=== PATIENT | male | born 1940 | race Caucasian/White ===

== ENCOUNTER 2017-01-17 12:58 | Inpatient (IN) | payer MEDICARE ==
[~2017-01-17] VITALS: Ht 177.8 cm; Wt 97.7 kg
[2017-01-17] VITALS (7 sets, daily range): BP systolic 146–170; BP diastolic 81–94; PULSE 72–85; RESP 13–24; O2SAT 96–97
--- NOTE | 2017-01-17 12:58 | ED.REPORT ---
HPI-General Illness Date of Service Jan 17, 2017 ED Provider: Arley Mason DO Patient is a 76 year old male with a hx of Afib, HTN, hypercholesterolemia, CVA , and coronary atherosclerosis on Coumadin who presents to the ED via EMS complaining of R leg weakness that has been intermittent for that last month but is worse and constant this morning since 0930.He denies chest pain, SOB, palpitations, numbness, tingling, vision changes, or any other symptoms. He had a sinus infection recently and was on doxycycline. He does not know if his afib is chronic but reports that he has a hx of afib. Patient is a difficult historian. Nursing Notes Stated Complaint: WEAKNESS Nursing Notes Reviewed: Yes Allergies: Coded Allergies: amoxicillin (Verified Allergy, Unknown, 01/17/17) cephalexin (Verified Allergy, Unknown, 01/17/17) epinephrine (Verified Allergy, Unknown, 01/17/17) irbesartan (Verified Allergy, Unknown, 01/17/17) morphine (Verified Allergy, Unknown, 01/17/17) prednisone (Verified Allergy, Unknown, 01/17/17) Uncoded Allergies: DAIRY (Allergy, Unknown, 01/17/17) congestion EPHENEDRINE (Allergy, Unknown, 01/17/17) NAPROXINE (Allergy, Unknown, 01/17/17) Scheduled Hydrochlorothiazide (Hydrochlorothiazide) 25 Mg Tablet 25 MG PO DAILY Lisinopril (Lisinopril) 20 Mg Tablet 20 MG PO DAILY Ubiquinol (Ubiquinol) 100 Mg Capsule 300 MG PO DAILY Warfarin Sodium (Coumadin) 6 Mg Tablet 6 MG PO DAILY General Time Seen by MD: 12:56 Chief Complaint Weakness Hx Obtained From: Patient Arrived By: Ambulance Sudden in Onset?: No Past Medical History Past Medical History Coronary atherosclerosis of 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 Physical Exam Vital Signs Vital Signs Date Time Temp Pulse Resp B/P Pulse Ox O2 Delivery O2 Flow Rate FiO2 01/17/17 13:39 81 13 150/94 96 Room Air 01/17/17 12:59 37.0 85 24 148/81 97 Room Air Initial VS: Reviewed Head / Eyes: Atraumatic, Normocephalic Respiratory: Breath sounds normal, Clear to auscultation, No respiratory distress Abdomen / GI: Soft, Non-tender Skin: Warm, Dry Psychiatric: Mood/affect normal, Behavior normal, Normal thought content General/Constitutional: Awake, Alert, No acute distress Neck: Supple, Full range of motion, No JVD Cardiovascular: Heart rate NL Heart Rate / Rhythm: Positive: Irregular rhythm Lower Ext Edema: Positive: Bilateral 1+ Rate controlled Neurologic: Oriented X3, Speech NL NIH stroke scale score 1 Interpretation & Diagnostics Lab Results Interpretation Result Diagram: 01/17/17 1325 01/17/17 1325 Test 01/17/17 13:25 White Blood Count 15.0th/mm3 (3.8-10.1) Red Blood Count 5.58mil/mm3 (4.40-5.80) Hemoglobin 17.1g/dL (13.8-17.2) Hematocrit 49.1% (41.0-50.0) Mean Corpuscular Volume 88.0fL (81-100) Mean Corpuscular Hemoglobin 30.6pg (27.0-35.0) Mean Corpuscular Hemoglobin Concent 34.8% (32.0-37.0) Red Cell Distribution Width 13.9% (12.3-15.4) Platelet Count 178bil/L (150-400) Neutrophils (%) (Auto) 76.6% (40-74) Lymphocytes (%) (Auto) 11.8% (14-46) Monocytes (%) (Auto) 10.6% (4-12) Eosinophils (%) (Auto) 0.4% (0-5) Basophils (%) (Auto) 0.3% (0-3) Prothrombin Time 41.2sec (8.1-12.5) Prothromb Time International Ratio 3.75ratio Activated Partial Thromboplast Time 46.9sec (22.8-33.0) Sodium Level 136mEq/L (134-144) Potassium Level 3.8mEq/L (3.5-5.2) Chloride Level 99mEq/L (97-108) Carbon Dioxide Level 23mmol/L (18-29) Blood Urea Nitrogen 21mg/dL (8-27) Creatinine 0.89mg/dL (0.76-1.27) Estimat Glomerular Filtration Rate 89mL/min (>59) Glucose Level 100mg/dL (60-99) Calcium Level 9.2mg/dL (8.5-10.1) Magnesium Level 1.9mg/dL (1.6-2.6) Total Bilirubin 1.0mg/dL (0.0-1.2) Aspartate Amino Transf (AST/SGOT) 22U/L (0-50) Alanine Aminotransferase (ALT/SGPT) 15U/L (0-44) Alkaline Phosphatase 76U/L (25-160) Troponin T < 0.010ug/L (0.0-0.011) Total Protein 7.2g/dL (6.4-8.4) Albumin 3.7g/dL (3.4-5.0) Hold Duke Top Tube Received (Received) ECG Interpretation ECG Interpretation: aflutter with rate 82 variable block pvc Time: 13:03 Interpreted by: ED physician X-Ray Chest Interpretation Chest Xray Interpretation: IMPRESSION: No acute cardiopulmonary abnormality. Dictated by: Jose Taylor M.D. on 01/17/2017 at 13:18 Approved by: Jose Taylor M.D. on 01/17/2017 at 13:18 View: Portable, 1 view Interpretation / Wet Read by: Interpret - Radiologist CT Head Interpretation IMPRESSION: 1. No acute intracranial abnormality. 2. Chronic bilateral cerebral infarcts. 3. Right parafalcine meningioma. 4. Volume loss and small vessel ischemic disease. Dictated by: Jasen Lacey M.D. on 01/17/2017 at 13:30 Approved by: Jasen Lacey M.D. on 01/17/2017 at 13:32 Study: Head CT no contrast Interpretation / Wet Read by: Interpret - Radiologist Re-Eval/Medical Decision Med Decision/Clinical Course Concern for stroke with recurrent TIAs leading up to it. INR is supratherapeutic, no aspirin given. Not a TPA candidate for multiple reasons. Time of Eval: 13:38 Re-Evaluation/Progress Note: Rechecked patient. Discussed imaging results and plan for admission. Patient understands and agrees with plan. All questions addressed at this time. Consultation #1: Referral / Consult Name: Alejandra Terrazas DO Consulted With: Hospitalist Call Returned at: 13:55 Clerical Secretary: Will see patient, Agrees with eval, Agrees with plan, Accepts admit Note: Discussed pt's case. Requests consult with [facility]. Accepts patient. Consultation #2: Consulted With: Neurology Call Returned at: 14:04 Note: [facility] Pt has known prior strokes and may be having small acute stroke. No particular concerns for admitting. Follow standard stroke workup. Counseled Regarding: Diagnosis, Lab results, Need for admission Discharge & Departure Primary Impression: CVA (cerebral vascular accident) CVA mechanism: unspecified Qualified Code: I63.9 - Cerebral infarction, unspecified Disposition: ADMITTED TO HOSPITAL Discharge Condition All VS Reviewed: Yes Condition: Stable Referrals: Arnaud Hampton MD (PCP) Scribe Attestation Portions of this note were transcribed by Lily Mcconnell. I, Dr. Mason personally performed the history, physical exam and medical decision-making; I reviewed and confirmed the accuracy of the information in the transcribed note. Signed by: Lily Mcconnell 01/17/17, 6823 copies to: Arnaud Hampton MD Risk Factors TPA Administration/Criteria Stroke Thrombolytic Therapy : TPA Considered: Yes Neurologist Contacted: No TPA Administered Intravenously: No, exclusion criteria Addl Ex Criteria 3-4.5 Hr: On oral anticoagulant NIH Stroke Scale Level of Consciousness: Alert and responsive (0) Ask Month & Age: Both questions right (0) Open/Close Eyes/Hand Railroad Car Loader: Performs both tasks (0) Horizontal EO Movements: None (0) Visual [place]: No visual loss (0) (Baseline peripheral vision deficits ) Facial Palsy: Normal symmetry (0) Right Arm Motor Drift (10s): No drift 10 sec (0) Left Arm Motor Drift (10s): No drift 10 sec (0) Right Leg Motor Drift (5s): Drift, not touch bed (1) (Weakness, did not hit bed ) Left Leg Motor Drift (5s): No drift 5 sec (0) Limb Ataxia FNF/Heel-Anthony: No ataxia (0) Sensation (Arms/Legs/Face): No sensory loss (0) Language Aphasia: No aphasia, normal (0) Dysarthria: No dysarthria, normal (0) Extinction/Inattention: No exctinct/inattent (0) NIHSS Score: 1 Time NIHSS Performed: 13:10 Date NIHSS Performed: Jan 17, 2017 Arley Mason DO Jan 17, 2017 12:58 LILY MCCONNELL Jan 17, 2017 13:09
--- NOTE | 2017-01-17 13:20 | DRSVH ---
PROCEDURE: X-RAY CHEST ONE VIEW, PORTABLE ([id number]) INDICATIONS: weakness TECHNIQUE: One view of the chest was acquired. COMPARISON: 06/09/2013 FINDINGS: Surgical changes and devices: Median sternotomy and CABG Lungs and pleura: No pleural effusions or pneumothorax. Lungs are clear. Mediastinum: Mediastinal contours appear normal. Heart size is normal. Tortuous aorta. Bones and chest wall: No suspicious bony lesions. Overlying soft tissues appear unremarkable. IMPRESSION: No acute cardiopulmonary abnormality. Dictated by: Jose Taylor M.D. on 01/17/2017 at 13:18 Approved by: Jose Taylor M.D. on 01/17/2017 at 13:18
--- NOTE | 2017-01-17 13:35 | DRSVH ---
PROCEDURE: CT BRAIN WITHOUT CONTRAST ([id number]) INDICATIONS: afib, right leg weakness TECHNIQUE: Noncontrast 4.5 mm thick angled axial sections acquired from the foramen magnum to the vertex, with c oronal reformats. COMPARISON: None. FINDINGS: Image quality: Excellent. CSF spaces: Basal cisterns are patent. No extra-axial fluid collections. The ventricles are symmet konstantin in size and shape. Brain: No intracranial bleeds. There is an extra-axial right superior parafalcine calcific focus mark suring 13 mm anteroposterior, adjacent to the right posterior medial frontal lobe. Small chronic infa rct within the right anterior frontal lobe is present. Encephalomalacia within the left medial pariet al lobe, as well as the left posterior and lateral occipital lobe is present, consistent with sequela e of remote infarct. There is cerebral volume loss for age, with resultant ventricular and sulcal pro minence. There are periventricular and deep white matter chronic small vessel ischemic changes. The re is intracranial internal carotid artery atherosclerosis. Skull and face: Calvarium and visualized facial bones appear intact, without suspicious lesions. Sinuses: Visualized sinuses and mastoids are clear. IMPRESSION: 1. No acute intracranial abnormality. 2. Chronic bilateral cerebral infarcts. 3. Right parafalcine meningioma. 4. Volume loss and small vessel ischemic disease. Dictated by: Jasen Lacey M.D. on 01/17/2017 at 13:30 Approved by: Jasen Lacey M.D. on 01/17/2017 at 13:32
[2017-01-17 13:45] LABS: BASOPHILS % (AUTO) 0.3 % (0-3); EOSINOPHILS % (AUTO) 0.4 % (0-5); MONOCYTES % (AUTO) 10.6 % (4-12); Mean Corpuscular Hemoglobin 30.6 pg (27.0-35.0); NEUTROPHILS % (AUTO) 76.6 % (40-74); Platelet Count 178 bil/L (150-400)
[2017-01-17 13:55] LABS: INR 3.75 ratio
[2017-01-17] MEDS ORDERED: LISI-567 PO (14:03)
[2017-01-17] MEDS ORDERED: WARF6TAB PO (14:03)
[2017-01-17] MEDS ORDERED: UBIQ100C PO (14:03)
[2017-01-17] MEDS ORDERED: HYDR25TA4 PO (14:03)
[2017-01-17 14:10] LABS: Magnesium 1.9 mg/dL (1.6-2.6)
[2017-01-17 14:17] LABS: TROPONIN T < 0.010 ug/L (0.0-0.011)
--- NOTE | 2017-01-17 15:33 | NUR ---
Evaluation completed. Please go to "Notes" then click on "Assessments and Notes" (bottom left corner of screen). Then select appropriate discipline tab on top of screen.
[2017-01-17] MEDS ORDERED: Polyethylene Glycol (PEG) 17 Gm Powder PO PRN (17:25)
[2017-01-17] MEDS ORDERED: Ondansetron 2 mg/mL 2 mL Inj IVPUSH PRN (17:25)
[2017-01-17] MEDS ORDERED: Alum-Mag Hydrox-Simeth 30 mL Suspension PO PRN (17:25)
[2017-01-17] MEDS ORDERED: Labetalol 5 mg/mL 4 mL Inj IVPUSH PRN (17:25)
--- NOTE | 2017-01-17 18:03 | NUR ---
[facility] Admission assessments and med rec completed in ER. Oriented to room and call light. Provider notified of arrival and assessed. A&O and SL.
[2017-01-17] MEDS ORDERED: LORazepam 0.5 mg Tablet PO ONE (18:15)
[2017-01-17 18:39] LABS: APPEARANCE,URINE CLEAR (CLEAR,HAZY); COLOR,URINE YELLOW (YELLOW); UROBILINOGEN,URINE NORMAL (NORMAL)
[2017-01-17 18:40] LABS: OCCULT BLOOD,URINE TRACE (NEGATIVE)
--- NOTE | 2017-01-17 19:42 | NUR ---
Patient off unit Patient to MRI at 1924. kennel technician notified. Left via wheelchair, alert and oriented.
--- NOTE | 2017-01-17 21:05 | DRSVH ---
PROCEDURE: MRI STROKE PROTOCOL ([id number]) Pre- and post-contrast brain MRI, non-contrast brain MR angiogram, pre- and postcontrast neck MR mirlande ogram INDICATIONS: stroke work up TECHNIQUE: Brain: Noncontrast axial T1 spin echo, axial T2 fast spin echo, sagittal and axial FLAIR, coronal T2 fast spin echo, axial gradient echo, axial diffusion and ADC through the brain. After the administr ation of contrast, axial 3D VIBE of the cranial vasculature and brain. Brain MRA: Non-contrast 3-D time of flight MR angiogram, with multiple fhpvxjz-yzqpcpipb-lyxlhoootx (MIP) reformats performed. Neck MRA: Axial and sagittal TruFISP through the neck. Coronal dynamic MR angiogram during administ ration of contrast in the arterial and venous phases, with 3-dimenstional wgujmtw-vqdmtatnp-imtiuaqfy n (MIP) reformats constructed from subtraction images. COMPARISON: [facility], CT, CT BRAIN WO CON, 01/17/2017, 13:21. FINDINGS: Image quality: Excellent. BRAIN: CSF spaces: Ventricles are normal in size and shape. Basal cisterns are patent. No extra-axial flu id collections. Brain: No intracranial bleeds or mass effects. [place]oto-white matter interface is normal. Diffusion we ighted images show multiple subcentimeter foci of acute ischemia in the left frontal periventricular white matter. There is chronic encephalomalacia involving the left temporal occipital lobe, and right frontal lobe. Scattered diffuse white matter signal changes presumably chronic microvascular ischemi c disease. Brainstem appears normal. Normal intravascular flow voids are present. No abnormal intr acranial enhancement. Skull and face: Calvarial marrow signal is normal. Orbits appear normal. Sinuses: Bilateral maxillary sinus disease. Mild right mastoid air cell fluid, technically nonspecifi c and age-indeterminate. BRAIN MR ANGIOGRAM: Anterior circulation: Intracranial internal carotid arteries are normal in size and enhancement. Rig ht anterior cerebral artery appears patent.. The left A2 segment is not well seen. Given the prominen t size, there may be a dominant right anterior cerebral artery, The flow within the middle cerebral a rteries is normal and symmetric. The anterior communicating artery is seen. Posterior circulation: The visualized portions of the vertebral arteries demonstrate normal caliber, and join to form a normal appearing basilar artery. The flow within the posterior cerebral arteries is normal and symmetric. No stenoses, occlusions, or aneurysms. NECK MR ANGIOGRAM: Carotids: Great vessels demonstrate a conventional anatomy as they arise from the aortic arch. The origins of the common carotid arteries appear patent. The calibers and courses of both common caroti d arteries are normal. The bifurcation regions appear normal bilaterally. The internal carotid nash brenda demonstrate normal course and caliber. Posterior circulation: The origins of the vertebral arteries appear patent. More superior portions of both vertebral arteries demonstrate normal course and caliber, and join to form a normal appearing basilar artery. Miscellaneous: Subclavian arteries appear patent. Pre-contrast images through the neck show no soft tissue abnormalities. IMPRESSION: BRAIN MRI: Multiple, subcentimeter foci of acute ischemia involving the left frontal periventricular white matter Right parafalcine meningioma Bilateral areas of chronic encephalomalacia as above. BRAIN MR ANGIOGRAM: The left A2 segment is not well-seen, possibly occluded although congenital atres ia in the setting of dominant right anterior cerebral artery is in the differential. Please correlate clinically. NECK MR ANGIOGRAM: No ICA stenosis. The estimate of stenosis included in the report of the imaging study was calculated using the NASCET method Dictated by: Artie Harvey M.D. on 01/17/2017 at 20:54 Approved by: Artie Harvey M.D. on 01/17/2017 at 21:03
--- NOTE | 2017-01-17 22:14 | NUR ---
Bladder scan Patient used urinal around 2144, only minimal output. Bladder scan showed 348 ml. About ten minutes later, patient used urinal, voided 400 ml. Patient has denied urinary discomfort.
--- NOTE | 2017-01-17 23:26 | PCM.HPMED ---
Subjective Date of Service Jan 17, 2017 Primary Provider: Admitting Physician: Yadira Archer DO Primary Care Physician: Arnaud Hampton MD Attending Physician: Yadira Archer DO Admit Status: From the Emergency Department Chief Complaint: R leg weakness History of Present Illness: This is a 76-year-old male with a past medical history of CAD status post double bypass in 2005, TIA, CVA in 2012, hypertension, atrial fibrillation onset 2005, hyperlipidemia, heart murmur aortic valve replacement (currently has a bovine valve) is presenting with right leg weakness that has worsened since 9:30 AM. Patient's says that he could barely stand on it and it is not like him. Patient had a previous stroke during which he had lost some peripheral vision but otherwise there are no residual effects. Recently he was treated with a sinus infection for doxycycline. He finished the course but says that he is not feeling much better. Patient has a little bit headache over his left temporal area has intermittent leg weakness but has pain in the right leg and knee. He denies numbness, tingling, denies double vision, he has no palpitations or dyspnea chest pain no urine symptoms and no GI symptoms. Pt has taken AM meds. He says he quit taking statin as his lipid panel was much improved. Patient denies recent fevers and chills recent weight loss and weight gain In the ER and itches score was 1, head CT showed previous bilateral infarcts volume loss small vessel ischemic changes, right parafalcine meningioma. [facility] was contacted and they basically recommended to treat for stroke because of his elevated INR at 3.75 he is outside the window for TPA and he was not given TPA. Lab work shows a scaly elevated white count at 15 otherwise fairly unremarkable. Review of Systems: Complete review of systems performed, pertinent positives and negatives per history of present illness, all other systems reviewed and are negative. Allergies Coded Allergies: amoxicillin (Verified Allergy, Unknown, 01/17/17) cephalexin (Verified Allergy, Unknown, 01/17/17) epinephrine (Verified Allergy, Unknown, 01/17/17) irbesartan (Verified Allergy, Unknown, 01/17/17) morphine (Verified Allergy, Unknown, 01/17/17) prednisone (Verified Allergy, Unknown, 01/17/17) Uncoded Allergies: DAIRY (Allergy, Unknown, 01/17/17) congestion EPHENEDRINE (Allergy, Unknown, 01/17/17) NAPROXINE (Allergy, Unknown, 01/17/17) Home Medications Medications include hydrochlorothiazide, lisinopril, Ubiquinone, warfarin PMH Past medical history remarkable for CAD status post double bypass in October 2005 , aortic valve replacement, bovine valve, TIA, CVA, hypertension, atrial fibrillation 2005, height hyperlipidemia, stroke that occurred in 2012, heart murmur Surgical History He has had double bypass surgery, aortic valve replacement with a bovine valve, H Achilles Tendon replacement, right wrist surgery Family History That from congestive heart failure next mom from old age Social History 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 Hx Alcohol Use: No Hx Substance Use: No Hx Tobacco Use: Yes (half pack per day) Smoking Status: Current Every Day Smoker, Unknown if Ever Smoker Living Arrangement: with Family Exam Vital Signs Vital Sign - Last Date Time Temp Pulse Resp B/P Pulse Ox O2 Delivery O2 Flow Rate FiO2 01/17/17 14:53 77 14 170/82 97 Room Air 01/17/17 12:59 37.0 Exam Gen.: No acute distress HEENT: Normocephalic, atraumatic Heart: Mild systolic murmur Lungs: No wheezing diminished in the left lower side Abdomen: Nontender nondistended mild tenderness in the LLQ Extremities: No swelling Musculoskeletal: Very mildly reduced strength in right upper leg however to markedly noticeable decreased strength in the lower right leg and foot. Left ankle is more swollen than right Neurological exam CN II-12 are grossly unremarkable with the exception of peripheral vision loss, has negative Romberg's, negative udfrqk-mq-kwen with the exception of loss of peripheral vision, negative alternative hands Eyes: [place] conjunctivae. No ptosis, PERRL Neck: No masses, trachea midline, no thyromegal Skin: Warm and dry. No rash, lesions or ulcers Psych: A&O X3, with appropriate affect Lab and Diagnostics Result Diagram: 01/17/17 1325 01/17/17 1325 Assessment & Plan This is a 76-year-old male with past medical history of heart disease status status post double bypass, previous TIA, previous CVA, A. fib and now he is presenting with the right leg weakness that is more intense than his baseline he is being worked up for stroke per [facility]. Assessment #1 strokelike symptoms, poa -- Patient has kept smoking after his prior stroke, he discontinued statin on his own, was not on asa. -- Telemonitoring , permissive hypertension during the first 24 hours -- Labetalol as needed for hypertension control -- atorvastatin is initiated -- Lipid panel and A1c are ordered: A1C is still pending, lipid panel shows CHOL =204, SPW=197 HDL=53 SG=040, not quite optimal for his risk factors -- Aspirin, continue Coumadin -- Pharmacy consult for Coumadin -- MR stroke protocol is ordered, ativan for anxiety prior to procedure -- US Echo is ordered -- PT/OT/ST are ordered Assessment #2 hypertension, chronic active -- Management as above hold hydrochlorothiazide and lisinopril for 24 hours Assessment #3 heart disease, chronic active -- Aspirin and statin, -- lisinopril is held Assessment #4 bronchitis, poa active -- Chest x-ray is ordered -- Consider Augmentin if there is concern Assessment #5 Tobacco abuse, active chronic -- Pt declines nicotine patch, states he will quit now for sure. Assessment #6 Chronic atrial fibrillation, active -- Patient is in afib on tele, was supratherapeutic on arrival -- Pharmacy consult is placed Code Status: Patient's is extremely anxious, often answering questions before patient could. I felt that it would not help to bring up code status considering the situation in the room. Plan to discuss when they are able to reasonably participate in those discussions. All pertinent records are reviewed, family and patient were communicated the plan of care. Pain Evaluation: Other (he has no pain) Time spent 40 min Yadira Archer DO Jan 17, 2017 16:36
[2017-01-18] VITALS (8 sets, daily range): BP systolic 131–177; BP diastolic 72–84; PULSE 24–95; RESP 20–28; O2SAT 94–97
--- NOTE | 2017-01-18 03:04 | NUR ---
NOC shift note Patient has remained alert and oriented through this night, a little forgetful at times. Has denied pain. Encouraged PO fluids with each time of entering room, patient agreeable. Vital signs have been stable. Patient voiding well. Neuro assessments unchanged. Bed alarm on for safety, call light within reach, intentional rounding.
[2017-01-18 06:22] LABS: Mean Corpuscular Hemoglobin 30.1 pg (27.0-35.0); Mean Corpuscular Volume 89.1 fL (81-100)
--- NOTE | 2017-01-18 06:51 | NUR ---
0640-Responded to Code Blue. Pt. awake and responding upon arrival. Breathing spontaneously. Respiratory intervention not needed.
--- NOTE | 2017-01-18 06:59 | PCM.PNMED ---
Subjective Date of Service Jan 18, 2017 Subjective This morning at 6:38 AM a CODE BLUE was called. Patient had been coughing and then returned slightly cyanotic and slumps over to one side and then prior to me getting there a believe had been briefly and then had spontaneous respirations and returned to his baseline respiratory and mental status. Of note patient was admitted with CVA. Exam Vital Signs Vital Sign - Last Date Time Temp Pulse Resp B/P Pulse Ox O2 Delivery O2 Flow Rate FiO2 01/18/17 06:42 177/82 01/18/17 04:48 36.4 74 20 96 Room Air Intake and Output 01/17/17 01/17/17 01/18/17 Cumulative From/Thru 15:00 23:00 07:00 01/17/17 12:59 - 01/18/17 06:15 Intake Total 120 ml 300 ml 420 ml Output Total 700 ml 1150 ml 1850 ml Balance -580 ml -850 ml -1430 ml Intake Oral 120 ml 300 ml 420 ml Output Urine Total 700 ml 1150 ml 1850 ml Exam Constitutional: Elderly male in no acute distress Head: Normocephalic atraumatic Eyes: PERRLA DC, EOMI Chest: Reveals some scattered rhonchi Cor: Irregular regular rate and rhythm S1-S2 controlled rate of 70-80 Extremities: Trace bilateral pedal edema Lab and Diagnostics Result Diagram: 01/18/17 0543 01/17/17 1325 Assessment & Plan This is a 76-year-old male with past medical history of heart disease status status post double bypass, previous TIA, previous CVA, A. fib and now he is presenting with the right leg weakness that is more intense than his baseline he is being worked up for stroke per [facility]. Assessment #1 strokelike symptoms, poa -- Patient has kept smoking after his prior stroke, he discontinued statin on his own, was not on asa. -- Telemonitoring , permissive hypertension during the first 24 hours -- Labetalol as needed for hypertension control -- atorvastatin is initiated -- Lipid panel and A1c are ordered: A1C is still pending, lipid panel shows CHOL =204, AII=747 HDL=53 CA=674, not quite optimal for his risk factors -- Aspirin, continue Coumadin -- Pharmacy consult for Coumadin -- MR stroke protocol is ordered, ativan for anxiety prior to procedure -- US Echo is ordered -- PT/OT/ST are ordered Assessment #2 hypertension, chronic active -- Management as above hold hydrochlorothiazide and lisinopril for 24 hours Assessment #3 heart disease, chronic active -- Aspirin and statin, -- lisinopril is held Assessment #4 bronchitis, poa active -- Chest x-ray is ordered -- Consider Augmentin if there is concern Assessment #5 Tobacco abuse, active chronic -- Pt declines nicotine patch, states he will quit now for sure. Assessment #6 Chronic atrial fibrillation, active -- Patient is in afib on tele, was supratherapeutic on arrival -- Pharmacy consult is placed Code Status: Patient's is extremely anxious, often answering questions before patient could. I felt that it would not help to bring up code status considering the situation in the room. Plan to discuss when they are able to reasonably participate in those discussions. All pertinent records are reviewed, family and patient were communicated the plan of care. Addendum at 6:58 AM: #Acute hypoxic episode with spontaneous recovery May have been related to aspiration versus mucus plugging We will make patient nothing by mouth until swallow eval by speech therapy Check stat chest x-ray, 12-lead EKG, serial troponins Currently patient's vital signs are stable Time spent 30 minutes Frances Henley MD Jan 18, 2017 06:59
--- NOTE | 2017-01-18 07:20 | NUR ---
Code Blue Called Patient began coughing at about 0630. Assessed patient, audible wheezes heard. Attempted to assist patient to an upright position and to sit at the edge of the bed. Patient's right side was stiff, unable to help with repositioning. Patient then suddenly slumped to the right side and began shaking. Skin color turned darker red. Respirations increased. Patient unable to speak clearly, was stuttering, and unable to make eye contact. Code blue button pushed for sudden change in mentation at about 0635. Staff, responded. Vital signs taken, within his normal range except for an elevated blood pressure. Episode lasted about five minutes total, shaking lasted about one minute. Patient did not lose consciousness. Patient was assisted back into a comfortable position. Appears to be back at baseline, and it is unclear whether or not patient remembers episode. Bed alarm on, report given to receiving RN. Addendum: 01/18/17 at 0737 by BERT HADDAD RN , Yesi, was called at home and updated on patient's condition.
--- NOTE | 2017-01-18 09:11 | DRSVH ---
PROCEDURE: X-RAY CHEST, TWO VIEWS ([id number]) INDICATIONS: bronchitis, cough, elev WBC TECHNIQUE: 2 views of the chest were acquired. COMPARISON: [facility], CR, XR CHEST 1VW (PORTABLE), 01/17/2017, 13:00. FINDINGS: Surgical changes and devices: Sternal wires and valve replacement are noted. Lungs and pleura: No pleural effusions or pneumothorax. Lungs are clear. Mediastinum: Mediastinal contours are normal. Heart size is normal. Bones and chest wall: No suspicious bony abnormalities. Soft tissues appear unremarkable. IMPRESSION: No acute pulmonary process. Dictated by: Destini Keene M.D. on 01/18/2017 at 8:47 Approved by: Destini Keene M.D. on 01/18/2017 at 9:09
[2017-01-18] MEDS ORDERED: Albuterol-Ipratropium 3 mL Inhalation Solution NEB PRN (09:25)
[2017-01-18 10:38] LABS: INR 1.79 ratio
--- NOTE | 2017-01-18 11:02 | PCM.PHAPRO ---
Progress R leg weakness Date Jan 18-Jan INR 3.75 1.79 INR change -1.96 Warf Dose HOLD 6 Angel Christianson Pharm.D Jan 18, 2017 11:02
--- NOTE | 2017-01-18 11:03 | DRSVH ---
PROCEDURE: CT ANGIO BRAIN NECK TPA INDICATIONS: stroke, concern for reinfarct TECHNIQUE: Pre-contrast 4.5 mm thick sections acquired from the foramen magnum to the vertex. After the adminis tration of intravenous contrast, 1 mm thick sections acquired from the aortic arch through the [place] of [place]. Post-contrast 4.5 mm thick sections then re-acquired from the foramen magnum to the vert ex. 3-dimensional jtkvgsi-cylwcebli-nhontyfluh (MIP) and/or volume rendering reformats were acquired of the central intracranial vasculature and neck separately. For radiation dose reduction, the foll owing was used: automated exposure control, adjustment of mA and/or kV according to patient size. COMPARISON: MRI stroke protocol 01/17/2017; CT brain 01/17/2017 FINDINGS: Image quality: Excellent. BRAIN: CSF spaces: Ventricles are normal in size and shape. Basal cisterns are patent. No extra-axial flu id collections. Brain: No midline shift. No intracranial bleeds. Partially calcified 14 mm right parafalcine mening ioma again noted. Chronic right frontal infarct again noted. Left posterior parietal and left occipit al encephalomalacia compatible with old infarcts. No apparent sequelae by CT imaging of the recent le ft deep white matter small ischemic infarcts. [place]oto-white matter interface appears intact. Chronic age related volume loss and deep white matter small vessel ischemic changes. Skull and face: Calvarium and facial bones appear intact, without suspicious lesions. Orbits appear normal. Sinuses: Sinuses show retention cyst in the right maxillary sinus and mucous membrane thickening in the left maxillary sinus and along septa within the ethmoidal sinuses, mastoids are clear. HEAD CT ANGIOGRAPHY: Anterior circulation: Intracranial internal carotid arteries are normal in size and flow. The flow within the paired anterior cerebral arteries is normal on the right but poorly visualized distally on the left, consistent with appearance on prior MRA and suspect for either congenital atresia or occlu jennifer of the left anterior cerebral artery. The flow within the middle cerebral arteries is normal and symmetric. The anterior communicating artery is seen. No aneurysms are seen. Posterior circulation: Visualized portions of the vertebral arteries demonstrate normal caliber, and join to form a normal appearing basilar artery. Flow within the posterior cerebral arteries is norm al and symmetric. No aneurysms are seen. NECK CT ANGIOGRAPHY: Carotid system: The great vessels demonstrate a conventional anatomy as they arise from the aortic a rch. The origins of the common carotid arteries appear patent. The common carotid arteries demonstr ate normal caliber and courses. The bifurcation regions show calcified atheromatous changes but are both widely patent. The internal carotid arteries demonstrate normal calibers and courses. Posterior circulation: The origins of the vertebral arteries both appear widely patent. The more benavidez perior extracranial portions of both vertebral arteries also demonstrate normal courses and calibers. They join to form a normal appearing basilar artery. Soft tissues: Visualized neck soft tissues demonstrate no suspicious abnormalities. Bones: No suspicious bony lesions. Visualized cervical spine appears normally aligned. IMPRESSION: 1. No acute intracranial hemorrhage. No secondary signs of acute ischemic reinfarction. 2. Focal areas of encephalomalacia consistent with old infarcts in the right frontal, left posterior parietal and left occipital lobes. 3. Stable right parafalcine meningioma that is partially calcified. 4. Cervical and intracranial vascularity appears normal except for scattered atheromatous calcificati ons. There is poor visibility of the left anterior cerebral artery distally. Dr. Archer paged for verbal report at 1055 hrs. on 01/18/2017 Dictated by: Jose Taylor M.D. on 01/18/2017 at 10:39 Approved by: Jose Taylor M.D. on 01/18/2017 at 11:01
--- NOTE | 2017-01-18 11:18 | NUR ---
Arrival to room 2012 Pt arrived to room 2012. Alert and oriented x 3 at time of arrival to unit. Denies pain. NIH 4. Blood glucose, 166. Atrial fibrillation per gambling monitor, rate 80s. Pressure stable. Oxygen saturation >92% on 2L per NC. Patient oriented to room and call light. Plan of care reviewed. Will continue to monitor.
--- NOTE | 2017-01-18 11:31 | NUR ---
A fib 140's/Anxiety/Transfer to CCU 0900 patient attempting to get out of bed, took gown off, diaphoretic, flushed, tele stated A fib 146, SBP 190. 4L O2 placed, within 15 minutes HR & BP trended down, SBP 140's, HR A fib 90's. Dr. Archer called to be made aware, stroke nurses x 2 helped assist patient, NIH score 9 @ 0900, trended down to 4 & 5. Head CT w/ contrast completed, to be read by [place]. Patient transferred to CCU 2012, report given to Yecenia Mai RN. A.m. medications not yet admin & physical assessment not completed d/t emergent state. Patient transferred off the floor @ 1100. Spouse carried all belongings, chart & meds hand carried by Balbina Maria RN. Daughter arrived after transfer, primary RN walked to elevator to direct to new floor.
--- NOTE | 2017-01-18 14:41 | NUR ---
NUTRITION ASSESSMENT: ASSESS: Pt is a76yo M admitted for possible CVA. Overnight code blue was called on the pt and pt was transferred to CCU 01/18. ST evaluated pt on 01/17 and cleared him for General diet and pt had good PO at 100%x2 meals. Pt is now NPO due to decline in status. PMHX: CAD, TIA, CVA, HTN, Afib, HLD LABS: Reviewed. Glu 100, Alb 3.7, alb 5.9 MEDS: Reviewed. GI: 0 BM recorded SKIN: no major issues noted CURRENT WTS: 98.4kg, BMI 31.1kg/m2, admit wt: 99.7kg, IBW: 75.4kg DIET: NPO EST. NEEDS: BMI Kcals: 1970-2165kcal/day (20-22kcal/kg) Pro: 90-110g/day (1.2-1.5g/kg IBW) NUTRITION DIAGNOSIS: 1.) Inadequate oral intake related to decreased ability to consume sufficient energy as evidenced by current NPO status NUTRITION INTERVENTION: 1.) Will monitor NPO status and POC. Recommend advance diet when medically appropriate. MONITOR / EVAL: NPO, gi, labs, wt, POC, nutrition status. Will continue to monitor per moderate nutrition risk guidelines
--- NOTE | 2017-01-18 16:07 | NUR ---
Evaluation completed. Please go to "Notes" then click on "Assessments and Notes" (bottom left corner of screen). Then select appropriate discipline tab on top of screen.
--- NOTE | 2017-01-18 16:56 | NUR ---
Status Patient resting without complaints. Word searching noted at times; otherwise, neurological status returned to pt baseline. Strength and sensation intact in all extremities. PERRLA. Facial droop resolved. Alert and oriented x 3. Atrial fibrillation per cardiac/vascular sonographer, rate controlled in the 70s to 80s. Pressure stable. Sp02 >92% on room air. Respiration even and unlabored. Speech re-evaluated pt this afternoon, pt tolerating diet. Family remains at bedside, will continue to monitor.
--- NOTE | 2017-01-18 17:04 | DRSVH ---
[facility] [address] [place] [place] [address] Echocardiogram Report Name: CHIQUIS KNOTT RStudy Date : 01/18/2017 Height: 70 in Hospital Exam Location: [facility] Weight: 217 lb Gender: Male BSA: 2.2 m2 : 1940 Age: 76 yrs BP: 177/82 mmHg Reason For Study: STROKE Ordering Physician: Performed By: Hill Panchal Interpretation Summary Left ventricular wall thickness is mildly increased. The ejection fraction is estimated to be 60-65%. The left atrium is severely dilated. The right atrium is moderately dilated. There is mild mitral regurgitation. There is mild aortic regurgitation. There is a bioprosthetic aortic valve. The prosthetic aortic valve is well-seated. The ascending aorta is mildly enlarged. Procedure: A two-dimensional transthoracic echocardiogram with color flow and Doppler was performed. The study quality was technically adequate. There is no prior echocardiogram noted for this patient. The patient was in atrial fibrillation with controlled ventricular rate during the exam. The patient had a heart rate of 56-94 beats per minute. Left Ventricle: The left ventricle is normal in size. Left ventricular wall thickness is mildly increased. The ejection fraction is estimated to be 60- 65%. Right Ventricle: The right ventricle is normal in size and function. Atria: The left atrium is severely dilated. The right atrium is moderately dilated. The interatrial septum is intact with no evidence for an atrial septal defect. Mitral Valve: The mitral valve is normal in structure and function. There is mild mitral annular calcification. There is mild mitral regurgitation. Aortic Valve: There is a bioprosthetic aortic valve. The prosthetic aortic valve is well-seated. The gradients through the prosthetic aortic valve are within the normal range for this type of valve. There is mild aortic regurgitation. Tricuspid Valve: The tricuspid valve is normal in structure and function. There is trace tricuspid regurgitation. Pulmonic Valve: The pulmonic valve is not well seen, but is grossly normal. There is no pulmonic valvular regurgitation. Great Vessels: The aortic root is normal size. The ascending aorta is mildly enlarged. The pulmonary artery is normal size. The IVC is of normal diameter and collapses greater than 50% with a sniff. This suggests a low right atrial pressure of 3 mm Hg. Pericardium/ Pleura There is no pericardial effusion. There is no pleural effusion. MMode/2D Measurements & Calculations LVIDd: 4.4 cm LA dimension: 5.0 cm RA long axis LVOT diam: 2.1 cm LVIDs: 2.0 cm AoV Opening FS: 53.6 % LA A2 area: 29.9 cm RA area EPSS: 0.47 cm LA A4 area: 29.0 cm Ao root diam IVSd: 1.1 cm LA length (vol) : 25.4 cm LVPWd: 1.2 cm RA vol Aortic Jxn: 2.2 cm LA vol: 111.5 ml : 89.5 ml asc Aorta Diam LA vol index RA : 41.4 mm2 Ao Arch Diam (Prox Trans): 2.4 cm IVC diam: 2.1 cm LV hernandez. diameter/BSA LV sys. diameter/BSA RVD1 (basal) RVD2 (mid): 3.5 cm (cm/m^2): 2.0 (cm/m^2): 0.94 Doppler Measurements & Calculations Ao V2 max: 206.4 cm/secMV E max kumar MV E/A: 152.7 TR max kumar Ao max P.1 mmHg : 102.3 cm/sec Med Peak E' Kumar : 244.5 cm/sec Ao mean P.0 mmHg MV A max kumar TR max PG LVOT Max Kumar : 0.67 cm/sec E/E' med: 16.3 : 24.0 mmHg : 122.7 cm/sec Lat Peak E' Kumar PA V2 max : 82.8 cm/sec ROLDAN(I,D): 1.9 cm E/E' lat: 9.0 PA mean PG sev ratio: 0.58 E/e' average AI P1/2t: 718.1 msec PA Accel Time AI dec slope : 0.12 sec : 163.1 cm/s2c MV dec time: 0.16 sec Ao V2 mean LV V1 max PG PA V2 mean : 141.6 cm/sec : 65.3 cm/sec Ao V2 VTI: 41.1 cmLV V1 VTI: 23.7 cm PA pr(Accel) ROLDAN(V,D): 2.0 cm2 : 24.1 mmHg ROLDAN indexed to BSA (cm^2/m^2): 0.89 Electronically signed by: Darshan Carrasco on Reading Physician:01/18/2017 05:04 PM
--- NOTE | 2017-01-18 21:00 | NUR ---
transfer: pt transferred from [facility], report received from Osbaldo MONROE. Pt is A&OX3, delayed response to questions at times. using call light appropriately. Denies pain. neuro assessment unchanged. will continue to monitor pt.
--- NOTE | 2017-01-18 22:55 | PCM.PNMED ---
Subjective Date of Service Jan 18, 2017 Subjective Patient is seen and examined this a.m. after a nursing call was made for tachycardia and hypertension. As a examined him in the room however he seemed to have a left-sided facial droop was not present yesterday. He was a little confused could not tell a his age. Upon their my examination, and NIHSS score of 9, a follow up CTA of brain and neck was performed to rule out an acute event. last night's MRI showed concern for A1 obstruction of unclear etiology. We also did a stroke assessment initial assessment score was 9 and followed by 5, 5 by the stroke nursing team. After this, the patient was transferred to CCU. Dr. Nathen Cox at [facility] was contacted and all this information was passed on to him and he does not he agrees with the management and will follow up later in the day. Exam Vital Signs Vital Sign - Last Date Time Temp Pulse Resp B/P Pulse Ox O2 Delivery O2 Flow Rate FiO2 01/18/17 07:06 83 01/18/17 06:42 177/82 01/18/17 04:48 36.4 20 96 Room Air Intake and Output 01/17/17 01/17/17 01/18/17 Cumulative From/Thru 15:00 23:00 07:00 01/17/17 12:59 - 01/18/17 06:15 Intake Total 120 ml 300 ml 420 ml Output Total 700 ml 1150 ml 1850 ml Balance -580 ml -850 ml -1430 ml Intake Oral 120 ml 300 ml 420 ml Output Urine Total 700 ml 1150 ml 1850 ml Exam Gen.: Appears confused HEENT: Slight left-sided facial droop is present Heart: Irregular irregular Lungs: No wheezing Abdomen obese nondistended Neuro exam patient is following commands but was not able to remember his age, left leg drifting positive, stroke scale points for LOC, facial droop, motor, confusion Psychiatric: Positive for anxiety IVs and Medications IV Fluids None Medications Reviewed: Medications were reviewed in detail Lab and Diagnostics Result Diagram: 01/18/17 0543 01/17/17 1325 12-lead ECG EKG this morning showed atrial fibrillation rate controlled Assessment & Plan This is a 76-year-old male with past medical history of heart disease status status post double bypass, previous TIA, previous CVA, A. fib and now he is presenting with the right leg weakness that is more intense than his baseline he is being worked up for stroke per [facility] neurology. # strokelike symptoms, poa -- Patient has kept smoking after his prior stroke, he discontinued statin on his own. -- Telemonitoring , permissive hypertension during the first 24 hours -- Labetalol as needed for hypertension control -- atorvastatin is initiated -- Lipid panel and A1c are ordered: A1C is still pending, lipid panel shows CHOL =204, HCP=444 HDL=53 XQ=561, not quite optimal for his risk factors -- Aspirin, continue Coumadin -- Pharmacy consult for Coumadin -- MR stroke protocol is ordered, Ativan for anxiety prior to procedure: Showed concern for A1 blockage, etiology unclear, Dr. Cox from [facility] neurology was contacted and given this information, all images were sent to him -- US Echo is ordered: Showed normal EF and findings consistent with atrial fibrillation but no PFO. -- PT/OT/ST are ordered, pt passed swallow test, once again. -- Due to concern for recurring stroke, we did a CTA of head and neck again this a.m.. Showed no new findings but this is also pushed to Dr. Cox. No concern for aneurysms or hemorrhage. Followed up in neurology with this a regarding his CTA, this is several microhemorrhages but he will benefit from Coumadin. We can hold the aspirin, per Dr. Tan, several microhemorrhages are evident in the CTA. CTA this am did not show any new findings or aneurysms or hemorrhages. Dr. Nathen Cox recommends standard stroke protocol care with the outpatient neurology follow-up -- We will continue to anticoagulate with warfarin, off note he is sub therapeutic this am -- Patient had an event this morning at 6:30 am where he was thought to have aspirated, he was made nothing by [facility] once swallow therapy was ordered but he passed. -- Pt did have a bad headache yesterday, thus his symptoms may have been secondary to TIA(more likley) vs complex migraine # hypertension, chronic active -- Management as above hold hydrochlorothiazide and lisinopril for 24 hours, will restart in the am #Acute hypoxic episode on 01/18 am with spontaneous recovery -- Devang catherine was called this am, pt was seen by the night hospitalist -- Thought have been related to aspiration versus mucus plugging, CXR showed ( reviewed by me) showed no evidence of mucus plugging # heart disease, chronic active -- Aspirin and statin, -- We will restart lisinopril 01/19 # bronchitis, poa active -- Chest x-ray is ordered : No acute findings -- Consider Augmentin if there is concern -- We will continue to monitor he does have a mild leukocytosis -- He decline breathing tx per RT # Tobacco abuse, active chronic -- Pt declines nicotine patch, states he will quit now for sure. # Chronic atrial fibrillation, active -- Patient is in afib on tele, was supratherapeutic on arrival -- Pharmacy consult is placed on warfarin -- Patient is subtherapeutic today, on Coumadin Code Status: I have discussed code status with patient and , patient was unable to help with this. is even more anxious and says unless he is Ethan or not cognitively intact, she would like for us to try everything All pertinent records are reviewed, family and patient were communicated the plan of care. Resuscitation Status: CPR: Attempt Resuscitation Time spent 40 minutes Yadira Archer DO Jan 18, 2017 07:22
[2017-01-19] VITALS (10 sets, daily range): BP systolic 144–182; BP diastolic 82–92; PULSE 67–84; RESP 20–24; O2SAT 93–97
[2017-01-19 06:25] LABS: Mean Corpuscular Hemoglobin 30.1 pg (27.0-35.0); Mean Corpuscular Volume 88.9 fL (81-100)
[2017-01-19 08:16] LABS: INR 1.38 ratio
--- NOTE | 2017-01-19 13:05 | PCM.PHAPRO ---
Progress Date of Service: Jan 19, 2017 R leg weakness WARFARIN MANAGEMENT A\ 76 yo M with AFIB and history of bioprosthetic Aortic valve replacement, TIA and previous stroke. Goal INR=2-3 Current INR=1.38 Home dose Warfarin 6mg po daily Pt was supertherapeutic at admission and warfarin was held. Warfarin was restarted at home dose but INR continues to fall and is subtherapeutic. Warfarin may take up to 3 days to see effect of dose but will increase tonight's dose of Warfarin to hopefully stop decreasing INR and bring pt back to goal. Pt was noted to have several microhemorrhages evident in CTA scan. P\ Warfarin 7mg po x1 tonight and will monitor daily INRs. Hany Martinez [facility] Jan 19, 2017 13:05
--- NOTE | 2017-01-19 13:10 | NUR ---
Evaluation completed. Please go to "Notes" then click on "Assessments and Notes" (bottom left corner of screen). Then select appropriate discipline tab on top of screen.
--- NOTE | 2017-01-19 15:21 | NUR ---
Cognitive Evaluation completed. *Initial score was verbally reported to MD as 17/30; however, correct score is 16/30. Please go to "Notes" then click on "Assessments and Notes" (bottom left corner of screen). Then select appropriate discipline tab on top of screen.
--- NOTE | 2017-01-19 15:43 | NUR ---
Coughing/Aspiration Teaching Pt able to tolerate food and liquids per diet without incident. Later in shift pt having periodic coughing with minimal thick clear sputum. Pt has hx of CVA with current CVA being evaluated. Pt instructed on importance to staying upright when eating for meal and 30 min after, eating slowly, and tucking chin. As well to report any issues with speech or swallowing. Pt appears to understand and is cooperative at this time.
--- NOTE | 2017-01-19 16:26 | NUR ---
Social Work Note - Initial Assessment Alvaro Daniels is a 76 yr old admitted for CVA, Afib. EMR reviewed: Pt has Medicare insurance, his PCP is Dr Hampton. Readmit score is 3. No DPOA - SOIL SAMPLER provided paperwork. No VA or LTC insurance. See attached CM initial assessment. SOIL SAMPLER met with pt - Pt's and daughter also in the room. SOIL SAMPLER introduced D/C planning and explained SW role. Pt lives at home with his in [place]. He is independent at baseline. Uses no DME. Pt was evaluated by PT who recommends outpt therapy. Pt plans to d/c home with , denies any needs. SOIL SAMPLER provided discharge planning checklist. SOIL SAMPLER will follow if needs arise. Plan: Home with family in [facility]. ALEXANDREA Sutherland Addendum: 01/19/17 at 1630 by CORI BAXTER SS Amended: Links added.
--- NOTE | 2017-01-19 21:15 | PCM.PNMED ---
Subjective Date of Service Jan 19, 2017 Subjective Patient is seen and examined. He was seen earlier walking in the hallways. He has regained most of his right lower extremity strength. His facial symptoms also have mostly resolved. Daughter expressed concern that he still shows a droop once in a while but for the most part he appears to be back to his normal per the . We discussed at length the findings of all scans so far and all questions were answered. Exam Vital Signs Vital Sign - Last Date Time Temp Pulse Resp B/P Pulse Ox O2 Delivery O2 Flow Rate FiO2 01/19/17 20:24 36.9 78 20 182/82 97 Room Air 01/18/17 11:18 2.00 Intake and Output 01/18/17 01/18/17 01/19/17 Cumulative From/Thru 15:00 23:00 07:00 01/17/17 12:59 - 01/19/17 06:12 Intake Total 200 ml 150 ml 770 ml Output Total 400 ml 600 ml 2850 ml Balance -200 ml -450 ml -2080 ml Intake Oral 200 ml 150 ml 770 ml Output Urine Total 400 ml 600 ml 2850 ml Exam Gen.: No acute distress Heart: Regular rate and regular rhythm Lungs: Clear to auscultation no crackles or wheezes Abdomen: Nontender nondistended normal bowel sounds Neuro exam CN II-12 grossly normal he does appear to have some delay in responding to questions but was able to answer Pres.'s name and some general questions. His leg strength has much improved in the right lower extremity Psych: Negative for anxiety or agitation Neck: Trachea central no JVD Skin is warm and dry IVs and Medications Medications Reviewed: Medications were reviewed in detail Lab and Diagnostics Result Diagram: 01/19/17 0539 01/19/17 0539 12-lead ECG EKG this morning showed atrial fibrillation rate controlled Cardiac Echo Impressions US eCho Interpretation Summary Left ventricular wall thickness is mildly increased. The ejection fraction is estimated to be 60-65%. The left atrium is severely dilated. The right atrium is moderately dilated. There is mild mitral regurgitation. There is mild aortic regurgitation. There is a bioprosthetic aortic valve. The prosthetic aortic valve is well-seated. The ascending aorta is mildly enlarged. Electronically signed by: Darshan Carrasco on Reading Physician:01/18/2017 05:04 PM Assessment & Plan This is a 76-year-old male with past medical history of heart disease status status post double bypass, previous TIA, previous CVA, A. fib and now he is presenting with the right leg weakness that is more intense than his baseline he is being worked up for stroke per [facility] neurology. # Strokelike symptoms, poa -- Patient has kept smoking after his prior stroke, he discontinued statin on his own. -- Telemonitoring , permissive hypertension during the first 24 hours -- Labetalol as needed for hypertension control -- atorvastatin is initiated -- Lipid panel and A1c are ordered: A1C is 5.9, lipid panel shows ZBXE=452, LDL= 126 HDL=53 OE=240, lipid panel not quite optimal for his risk factors -- Aspirin, continue Coumadin -- Pharmacy consult for Coumadin -- MR stroke protocol is ordered, Ativan for anxiety prior to procedure: Showed concern for A1 blockage, etiology unclear, Dr. Cox from [facility] neurology was contacted and given this information, all images were sent to him -- US Echo is ordered: Showed normal EF and findings consistent with atrial fibrillation but no PFO. -- PT/OT/ST are ordered, pt passed swallow test, once again. -- Due to concern for recurring stroke, we did a CTA of head and neck again 7/ 13 a.m.. Showed no new findings but this is also pushed to Dr. Cox. No concern for aneurysms or hemorrhage. Followed up in neurology with this a regarding his CTA, this is several microhemorrhages but he will benefit from Coumadin. We can hold the aspirin, per Dr. Tan, several microhemorrhages are evident in the CTA. CTA this am did not show any new findings or aneurysms or hemorrhages. Dr. Nathen Cox recommends standard stroke protocol care with the outpatient neurology follow-up -- We will continue to anticoagulate with warfarin, of note he is sub therapeutic this am -- Patient had an event this morning at 6:30 am where he was thought to have aspirated, he was made nothing by mouth once swallow therapy was ordered but he passed. -- Discussed left frontal lobe findings with the Dr. YOUNG from [facility] neuro he feels that even though the acute infarcts are in the frontal area if the deep enough that it would cause more symptoms which may explain his right lower leg weakness. -- Dr. Mckeon also recommends that in the acute phase after the stroke agent may see waxing and waning symptoms which may be due to surrounding edema. # hypertension, chronic active -- Patient's hydrochlorothiazide and lisinopril were restarted -- Increased lisinopril dose #Acute hypoxic episode on 01/18 am with spontaneous recovery -- Code blue was called this am, pt was seen by the night hospitalist on 01/18. Thought have been related to aspiration versus mucus plugging, CXR showed ( reviewed by me) showed no evidence of mucus plugging or aspiration # heart disease, chronic active -- Aspirin, statin and Lisinopril # bronchitis, poa improved -- Chest x-ray is ordered : No acute findings -- Consider Augmentin if there is concern -- We will continue to monitor he does have a mild leukocytosis -- He declined breathing tx per RT # Tobacco abuse, active chronic -- Pt declines nicotine patch, states he will quit now for sure. # Chronic atrial fibrillation, active -- Patient is in afib on tele, was supratherapeutic on arrival -- Pharmacy consult is placed on warfarin -- INR is 1.38 today, on Coumadin Code Status: I have discussed code status with patient and , patient was unable to help with this. is even more anxious and says unless he is Ethan or not cognitively intact, she would like for us to try everything All pertinent records are reviewed, family and patient were communicated the plan of care. VTE Mechanical Devices: Intermittant Pneumatic CD Resuscitation Status: CPR: Attempt Resuscitation Time spent 30 min Yadira Archer DO Jan 19, 2017 21:15
[2017-01-20] VITALS (7 sets, daily range): BP systolic 155–165; BP diastolic 91–95; PULSE 49–80; RESP 18–22; O2SAT 95–96
[2017-01-20 04:21] LABS: INR 1.23 ratio
--- NOTE | 2017-01-20 09:20 | NUR ---
D/C PT; ambulate w/Nsg Pt has met all PT goals and is discharged from further PT at this time; recommended to ambulate w/nsg 3x/day w/SBA.
[2017-01-20] MEDS ORDERED: RIVA15TA PO (14:26)
--- NOTE | 2017-01-20 14:59 | NUR ---
Social Work Note - Continued D/C planning PRINCIPAL RESEARCH ECONOMIST was asked by MD to run Xarelto at pt's pharmacy to determine patient pay amount. PRINCIPAL RESEARCH ECONOMIST discussed with Pt - Uses [facility] and he asked that I fax Rx to Pharmacist. Pharmacist states that pt's out of pocket cost would be $500+ per month. PRINCIPAL RESEARCH ECONOMIST discussed with family - Pt states he is not able to afford that medication. PRINCIPAL RESEARCH ECONOMIST updated MD and will continue to follow. Plan: Home with in POV when medically stable. ALEXANDREA Sutherland
--- NOTE | 2017-01-20 16:02 | CONS ---
[address] [address] CONSULTATION REPORT PATIENT: CHIQUIS KNOTT : 1940 MR#: [id number] ADMIT: 01/17/2017 JOB ID: [id number] DATE OF SERVICE: REQUESTING PHYSICIAN: Dr. Yadira Archer. PURPOSE FOR CONSULT: Acute stroke with fluctuating symptoms. HISTORY OF PRESENT ILLNESS: The patient is a 76-year-old gentleman with history of atrial fibrillation and prior stroke four years ago who developed subacute right leg weakness several weeks ago found to have multiple punctate acute strokes in both hemispheres on MRI. He was admitted via ED on January 17, 2017, after presenting with increased weakness and inability to get into the car when his was trying to take him to the doctor. His , Yesi, is at the bedside and provides the history. Apparently the patient had been experiencing leg weakness which he refers to as right knee weakness off and on for the last month. He had recently had a sinus infection and was on doxycycline. 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 In [place], he enjoys this very much but Yesi states he has been getting quite dehydrated through the day. He also stopped Lipitor after he developed muscle pain. Yesi complains that no one told him what statins were useful for. His INR was also noted to be 3.4. He is on warfarin for atrial fibrillation. Yesi attributes that to doxycycline. In the emergency room, the patient was appropriately evaluated for stroke and deemed not a candidate for tPA based on length of time since the onset of symptoms by Dr. Arley Mason. Upon arrival, his blood pressure was elevated at 150/94 with elevated white count at 15 and normal creatinine. A head CT was completed and showed no evidence of acute stroke and bilateral chronic cerebellar infarct as well as a right parafalcine meningioma. Microvascular disease was also appreciated. The patient was admitted after the case was discussed with Dr. Nathen Harrell from [facility] who recommended standard stroke workup. The patient's NIH score on admission was noted as 1. Echocardiogram was completed on January 18 and showed a severely dilated left atrium, among other findings, with no evidence of thrombus. The echocardiogram also demonstrates the patient's bioprosthetic aortic valve. Patient was noted to be in atrial fibrillation. Please see report for further details. MRI of the brain was completed on January 17, 2017, and I have personally reviewed this on the PACS system. There are punctate diffusion-weighted abnormalities noted in both hemispheres consistent with multiple acute showering of emboli. MR angiography showed that the A2 segment was not well visualized. Otherwise, no severe stenosis or aneurysms noted. Evidence of the prior stroke from 2013 in the left occipital lobe was appreciated. Dr. Archer requested a Neurology consultation given the fluctuating symptoms. Yesterday, patient had increased confusion and new slight left facial droop and fluctuating right leg weakness. She discussed the case with the neuro hospitalist, Dr. Nathen Harrell, the [facility] stroke neuro hospitalist, who recommended CT angiography which confirmed the areas of encephalomalacia, parafalcine meningioma, but poorly visualized the left anterior cerebral artery distally. No areas of stenosis or acute stroke were appreciated. Dr. Harrell agreed with the patient's care plan as articulated by Dr. Archer. Dr. Archer requested a Neurology consultation to discuss the fluctuating symptoms with the patient's and also offer additional insight into treatment. REVIEW OF SYSTEMS: Is as per the history of present illness plus fluctuating confusion. All other systems were reviewed and reported as negative. Leg strength has been fluctuating but appears strong today. PAST MEDICAL HISTORY: Coronary artery disease, status post double bypass, 2005, aortic valve replacement. TIA, CVA in 2012 in the left occipital hemisphere, hypertension, atrial fibrillation, hyperlipidemia, Achilles tendon replacement. FAMILY HISTORY: A brother age 30 with stroke. Mother with congestive heart failure. SOCIAL HISTORY: He is retired from multiple jobs. 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 No alcohol or substance abuse. History of half pack cigarettes daily. Lives with his and has a supportive family. PHYSICAL EXAMINATION: He is a pleasant and cooperative gentleman in no apparent distress. Vital signs: Blood pressure elevated 164/95, temperature 36.6, pulse 80, respiratory rate 20, pulse oximetry 95% on room air. Head: Normocephalic, atraumatic. No evidence of carotid bruits. Cardiac. Irregular rate, holosystolic murmur. Extremities: No edema. Good pedal pulses. NEUROLOGIC EXAMINATION: The patient is alert and oriented x3, with language and speech intact and fluent. He is somewhat slow with answers. Extensive cognitive examination is not performed. Cranial nerves: Pupils are equally reactive to light and accommodation. Extraocular movements intact. No facial asymmetry. Sensation intact on the face bilaterally. Tongue midline. Palate raises symmetrically. SCM and shoulder shrug, as well as hearing appear to be intact bilaterally. Motor strength: Intact throughout, 5/5, including the right lower extremity. Upper and lower extremities examined. Deep tendon reflexes are 1+ throughout with plantar reflex extensor on the right. Tone intact, upper and lower extremities. Coordination: Intact [id number], [id number], and rapidly alternating movement. Gait: Patient able to ambulate without assistance as of January 20, 2017, per PT. LABORATORIES: As above. IMAGING: As above. ASSESSMENT/RECOMMENDATION: The patient is a 76-year-old gentleman with acute stroke and history of coronary artery disease, who has not seen his primary care doctor for a year, stopped statins, and continues to smoke cigarettes. MRI of the brain shows evidence of stroke due to multiple punctate T2 weighted hyperintensities in both hemispheres which is suggestive of cardioembolic showering of emboli possibly from his cardiac valve and/or from atrial fibrillation. In addition to continuing anticoagulation, whether that be with oral anticoagulants or warfarin, it will be important for him to have his medications managed for compliance. Restarting statins and smoking cessation are essential. 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 He should follow up with Dr. Hampton, his primary care doctor as planned for management of his cardiovascular risks. I explained that the fluctuations are normal in recovery from stroke. At this time, it is acceptable for him to begin to lower blood pressure without any evidence of stenosis in the vessels. I would defer to Cardiology for the parameters given his cardiac findings. It is likely that he has not been compliant, in part because of cognitive impairment from his health issues. I recommended that his manage his medications for him. Although I would be glad to see him as an outpatient, it may be several months before that can occur. This is less important than him having his cardiovascular risks addressed. My recommendations and assessment were discussed with the patient and his , as well as Dr. Archer. Thank you for this consultation. I will sign off for now. Over half of this 80-minute total consultation was spent in counseling with family. LIGIA
--- NOTE | 2017-01-20 20:24 | PCM.PNMED ---
Subjective Date of Service Jan 20, 2017 Subjective Patient is an examined. He is doing much better today is continuing to show more strength in right lower leg and is continuing to ambulate. His INR does not seem to be coming up in spite of pharmacy monitoring daily. He was seen by Dr. Clayton this morning no other concerns Exam Vital Signs Vital Sign - Last Date Time Temp Pulse Resp B/P Pulse Ox O2 Delivery O2 Flow Rate FiO2 01/20/17 09:49 36.6 80 22 164/95 95 Room Air 01/18/17 11:18 2.00 Intake and Output 01/19/17 01/19/17 01/20/17 Cumulative From/Thru 15:00 23:00 07:00 01/17/17 12:59 - 01/20/17 06:09 Intake Total 700 ml 300 ml 1770 ml Output Total 375 ml 850 ml 4075 ml Balance 325 ml -550 ml -2305 ml Intake Oral 700 ml 300 ml 1770 ml Output Urine Total 375 ml 850 ml 4075 ml # Bowel Movements 0 0 Exam Gen.: No acute distress Heart: Regular rate and regular rhythm Lungs: Clear to auscultation no crackles or wheezes Abdomen: Nontender nondistended normal bowel sounds Neuro exam CN II-12 grossly normal His leg strength has much improved in the right lower extremity. Finger foot doctor strength is mildly decreased on the right side but much improved from yesterday Psych: Negative for anxiety or agitation Neck: Trachea central no JVD Skin is warm and dry IVs and Medications Medications Reviewed: Medications were reviewed in detail Lab and Diagnostics Result Diagram: 01/19/17 0539 01/19/17 0539 12-lead ECG EKG this morning showed atrial fibrillation rate controlled Cardiac Echo Impressions US eCho Interpretation Summary Left ventricular wall thickness is mildly increased. The ejection fraction is estimated to be 60-65%. The left atrium is severely dilated. The right atrium is moderately dilated. There is mild mitral regurgitation. There is mild aortic regurgitation. There is a bioprosthetic aortic valve. The prosthetic aortic valve is well-seated. The ascending aorta is mildly enlarged. Electronically signed by: Darshan Carrasco on Reading Physician:01/18/2017 05:04 PM Assessment & Plan This is a 76-year-old male with past medical history of heart disease status status post double bypass, previous TIA, previous CVA, A. fib and now he is presenting with the right leg weakness that is more intense than his baseline he is being worked up for stroke per [facility] neurology. #Acute CVA, poa -- Patient has kept smoking after his prior stroke, he discontinued statin on his own. -- Telemonitoring , permissive hypertension during the first 24 hours -- Labetalol as needed for hypertension control -- atorvastatin is initiated -- Lipid panel and A1c are ordered: A1C is 5.9, lipid panel shows FVLH=779, LDL= 126 HDL=53 TO=356, lipid panel not quite optimal for his risk factors -- Aspirin, continue Coumadin -- Pharmacy consult for Coumadin -- MR stroke protocol is ordered, Ativan for anxiety prior to procedure: Showed concern for A1 blockage, etiology unclear, Dr. Cox from [facility] neurology was contacted and given this information, all images were sent to him -- US Echo is ordered: Showed normal EF and findings consistent with atrial fibrillation but no PFO. -- PT/OT/ST are ordered, pt passed swallow test, once again. -- Due to concern for recurring stroke, we did a CTA of head and neck again a.m.. Showed no new findings but this is also pushed to Dr. Cox. No concern for aneurysms or hemorrhage. Followed up in neurology with this a regarding his CTA, this is several microhemorrhages but he will benefit from Coumadin. We can hold the aspirin, per Dr. Tan, several microhemorrhages are evident in the CTA. CTA this am did not show any new findings or aneurysms or hemorrhages. Dr. Nathen Cox recommends standard stroke protocol care with the outpatient neurology follow-up -- We will continue to anticoagulate with warfarin, of note he is sub therapeutic this am -- Patient had an event this morning at 6:30 am where he was thought to have aspirated, he was made nothing by mouth once swallow therapy was ordered but he passed. -- Discussed left frontal lobe findings with the Dr. YOUNG from [facility] neuro he feels that even though the acute infarcts are in the frontal area if the deep enough that it would cause more symptoms which may explain his right lower leg weakness. -- Dr. Mckeon also recommends that in the acute phase after the stroke agent may see waxing and waning symptoms which may be due to surrounding edema. -- I have contacted Dr. Clayton neurologist on 01/20, she agrees to see the patient that she believes she does not need any direct neurology follow-up as outpatient. -- I have contacted Dr. Joel Who is on-call this weekend for onc regarding patient's anticoagulation, discussed possible replacement of Coumadin with novel agent as he is not achieving optimal control with diet and INR. We agreed that the patient may benefit from xarelto and leave him on aspirin for the bovine valve. However patient's insurance required for him to pay for $500 per month and patient's family can not afford. There is really had to put him back on Coumadin with enoxaparin bridging -- Dr. Campos immediately recommends a PCP follow-up and while she will be available over the phone to the PCP if they need to reach her. # hypertension, chronic active improved -- Patient's hydrochlorothiazide and lisinopril were restarted -- Increased lisinopril dose to 20 mg twice a day #Acute hypoxic episode on 01/18 am with spontaneous recovery -- Devang catherine was called this am, pt was seen by the night hospitalist on 01/18. Thought have been related to aspiration versus mucus plugging, CXR showed ( reviewed by me) showed no evidence of mucus plugging or aspiration -- Etiology unclear, could be post strok waxing waning symptomata # heart disease, chronic active -- Aspirin, statin and Lisinopril # bronchitis, poa resolved -- Chest x-ray is ordered : No acute findings -- Consider Augmentin if there is concern -- We will continue to monitor he does have a mild leukocytosis -- He declined breathing tx per RT # Tobacco abuse, active chronic -- Pt declines nicotine patch, states he will quit now for sure. # Chronic atrial fibrillation, active -- Patient is in afib on tele, was supratherapeutic on arrival -- Pharmacy consult is placed on warfarin -- INR is 1. 24 today, on Coumadin -- unable to write for novel anticoag due to family not being able to afford, start bridging with enoxaparin Code Status: I have discussed code status with patient and , patient was unable to help with this. is even more anxious and says unless he is Ethan or not cognitively intact, she would like for us to try everything All pertinent records are reviewed, family and patient were communicated the plan of care. VTE Mechanical Devices: Venous Foot Pump Resuscitation Status: CPR: Attempt Resuscitation Time spent 45 minutes Yadira Archer DO Jan 20, 2017 10:05 Ydaira Archer DO Jan 20, 2017 10:05
[2017-01-21 01:09] VITALS: BP 128/79; PULSE 64; RESP 18; O2SAT 96
[2017-01-21 05:36] VITALS: BP 151/90; PULSE 74; RESP 18; O2SAT 93
[2017-01-21 05:38] VITALS: PULSE 72
[2017-01-21 06:59] LABS: INR 1.61 ratio
--- NOTE | 2017-01-21 07:33 | PCM.PHAPRO ---
Progress R leg weakness Date Jan 18-Jan 19-Jan 20-Jan 21-Jan INR 3.75 1.79 1.38 1.23 1.61 INR change -1.96 -0.41 -0.15 0.38 Warf Dose HOLD 6 7 8 7 Angel Christianson Pharm.D Jan 21, 2017 07:33
[2017-01-21] MEDS ORDERED: ASPI81TA3 PO (08:02)
[2017-01-21] MEDS ORDERED: ATOR10TA66 PO (08:02)
[2017-01-21] MEDS ORDERED: LISI-567 PO (08:05)
[2017-01-21 10:56] VITALS: BP 149/84; PULSE 80; RESP 18; O2SAT 96
--- NOTE | 2017-01-21 11:42 | PCM.DIMED ---
Discharge Instructions Date of Service Jan 21, 2017 Dates of Hospitalization Jan 17, 2017 at 15:25 Discharge Diagnosis Discharge Diagnosis Acute CVA, Afib, Biprosthetic AV, HTN, CAD, Hyperlipidemia, Tobacco abuse Medication Instructions Additional med instructions Please note new medication atorvastatin YOur Lisinopril is increased to 20 mg BID to better control your BP Diet Discharge Diet: Heart Healthy Call your provider Call your provider for: Fever or Chills, Shortness of breath, Bleeding, Chest pain, Vomitting, Excessive diarrhea, Weakness (unilateral), Other Patient Instructions Patient Instructions F/U with coumadin clinic on 01/23/17 for a f/u INR to be sent to PCP Follow-up plan F/U with PCP in one week. PCP to seek advice from Dr. Clayton as needed for neurology Yadira Archer DO Jan 21, 2017 11:42
[2017-01-21] MEDS ORDERED: LIP40 PO (11:47)
--- NOTE | 2017-01-21 11:47 | PCM.DC.MED ---
Discharge Summary Date of Service Jan 21, 2017 Dates of Hospitalization Date of Hospital Admission Jan 17, 2017 at 15:25 Date of Discharge: Jan 20, 2017 Providers: Admitting Physician: Yadira Jauregui DO Primary Care Physician: Arnaud Hampton MD Attending Physician: Yadira Jauregui DO Diagnosis at Time of Discharge Diagnosis at Time of Discharge Acute CVA, Afib, Biprosthetic AV, HTN, CAD, Hyperlipidemia, Tobacco abuse Consultations Neurology Dr. thomas, [facility] [place] Procedures XRay, CTs & MRIs PROCEDURE: CT ANGIO BRAIN NECK TPA INDICATIONS: stroke, concern for reinfarct TECHNIQUE: Pre-contrast 4.5 mm thick sections acquired from the foramen magnum to the vertex. After the administration of intravenous contrast, 1 mm thick sections acquired from the aortic arch through the [place]. Post-contrast 4.5 mm thick sections then re-acquired from the foramen magnum to the vertex. 3- dimensional zapdbpk-hmbudwqko-nmqkgybhln (MIP) and/or volume rendering reformats were acquired of the central intracranial vasculature and neck separately. For radiation dose reduction, the following was used: automated exposure control, adjustment of mA and/or kV according to patient size. COMPARISON: MRI stroke protocol 01/17/2017; CT brain 01/17/2017 IMPRESSION: 1. No acute intracranial hemorrhage. No secondary signs of acute ischemic reinfarction. 2. Focal areas of encephalomalacia consistent with old infarcts in the right frontal, left posterior parietal and left occipital lobes. 3. Stable right parafalcine meningioma that is partially calcified. 4. Cervical and intracranial vascularity appears normal except for scattered atheromatous calcifications. There is poor visibility of the left anterior cerebral artery distally. Dr. Jauregui paged for verbal report at 1055 hrs. on 01/18/2017 Dictated by: Jose Taylor M.D. on 01/18/2017 at 10:39 Approved by: Jose Taylor M.D. on 01/18/2017 at 11:01 PROCEDURE: X-RAY CHEST, TWO VIEWS ([id number]) INDICATIONS: bronchitis, cough, elev WBC IMPRESSION: No acute pulmonary process. Dictated by: Destiin Keene M.D. on 01/18/2017 at 8:47 Approved by: Destini Keene M.D. on 01/18/2017 at 9:09 PROCEDURE: MRI STROKE PROTOCOL ([id number]) Pre- and post-contrast brain MRI, non-contrast brain MR angiogram, pre- and postcontrast neck MR angiogram INDICATIONS: stroke work up IMPRESSION: BRAIN MRI: Multiple, subcentimeter foci of acute ischemia involving the left frontal periventricular white matter Right parafalcine meningioma Bilateral areas of chronic encephalomalacia as above. BRAIN MR ANGIOGRAM: The left A2 segment is not well-seen, possibly occluded although congenital atresia in the setting of dominant right anterior cerebral artery is in the differential. Please correlate clinically. NECK MR ANGIOGRAM: No ICA stenosis. The estimate of stenosis included in the report of the imaging study was calculated using the NASCET method Dictated by: Artie Harvey M.D. on 01/17/2017 at 20:54 Approved by: Artie Harvey M.D. on 01/17/2017 at 21:03 = PROCEDURE: CT BRAIN WITHOUT CONTRAST ([id number]) INDICATIONS: afib, right leg weakness IMPRESSION: 1. No acute intracranial abnormality. 2. Chronic bilateral cerebral infarcts. 3. Right parafalcine meningioma. 4. Volume loss and small vessel ischemic disease. Dictated by: Jasen Lacey M.D. on 01/17/2017 at 13:30 Approved by: Jasen Lacey M.D. on 01/17/2017 at 13:32 PROCEDURE: X-RAY CHEST ONE VIEW, PORTABLE ([id number]) INDICATIONS: weakness IMPRESSION: No acute cardiopulmonary abnormality. Dictated by: Jose Taylor M.D. on 01/17/2017 at 13:18 Approved by: Jose Taylor M.D. on 01/17/2017 at 13:18 ECG 12 Lead EKG this morning showed atrial fibrillation rate controlled Cardiac Echo Impression US eCho Interpretation Summary Left ventricular wall thickness is mildly increased. The ejection fraction is estimated to be 60-65%. The left atrium is severely dilated. The right atrium is moderately dilated. There is mild mitral regurgitation. There is mild aortic regurgitation. There is a bioprosthetic aortic valve. The prosthetic aortic valve is well-seated. The ascending aorta is mildly enlarged. Electronically signed by: Darshan Carrasco on Reading Physician:01/18/2017 05:04 PM Brief History This is a 76-year-old male with a past medical history of CAD status post double bypass in 2005, TIA, CVA in 2012, hypertension, atrial fibrillation onset 2005, hyperlipidemia, heart murmur aortic valve replacement (currently has a bovine valve) is presenting with right leg weakness that has worsened since 9:30 AM. Patient's says that he could barely stand on it and it is not like him. Patient had a previous stroke during which he had lost some peripheral vision but otherwise there are no residual effects. Recently he was treated with a sinus infection for doxycycline. He finished the course but says that he is not feeling much better. Patient has a little bit headache over his left temporal area has intermittent leg weakness but has pain in the right leg and knee. He denies numbness, tingling, denies double vision, he has no palpitations or dyspnea chest pain no urine symptoms and no GI symptoms. Pt has taken AM meds. He says he quit taking statin as his lipid panel was much improved. Patient denies recent fevers and chills recent weight loss and weight gain In the ER and itches score was 1, head CT showed previous bilateral infarcts volume loss small vessel ischemic changes, right parafalcine meningioma. [place] was contacted and they basically recommended to treat for stroke because of his elevated INR at 3.75 he is outside the window for TPA and he was not given TPA. Lab work shows a scaly elevated white count at 15 otherwise fairly unremarkable. Hospital Course This is a 76-year-old male with past medical history of heart disease status status post double bypass, previous TIA, previous CVA, A. fib and now he is presenting with the right leg weakness that is more intense than his baseline he is being worked up for stroke per [facility]. #Acute CVA, poa -- Patient has kept smoking after his prior stroke, he discontinued statin on his own. No ASA -- Telemonitoring , permissive hypertension during the first 24 hours -- Labetalol as needed for hypertension control -- atorvastatin is initiated -- Lipid panel and A1c are ordered: A1C is 5.9, lipid panel shows BZJS=050, LDL= 126 HDL=53 VP=596, lipid panel not quite optimal for his risk factors -- Aspirin, continue Coumadin -- Pharmacy consult for Coumadin -- MR stroke protocol is ordered, Ativan for anxiety prior to procedure: Showed concern for A1 blockage, etiology unclear, Dr. Cox from [facility] was contacted and given this information, all images were sent to him -- US Echo is ordered: Showed normal EF and findings consistent with atrial fibrillation but no PFO. -- PT/OT/ST are ordered, pt passed swallow test, once again. -- Due to concern for recurring stroke, we did a CTA of head and neck again a.m.. Showed no new findings but this is also pushed to Dr. Cox. No concern for aneurysms or hemorrhage. Followed up in neurology with this a regarding his CTA, this is several microhemorrhages but he will benefit from Coumadin. We can hold the aspirin, per Dr. Velasco if it is non, several microhemorrhages are evident in the CTA. CTA this am did not show any new findings or aneurysms or hemorrhages. Dr. Nathen Cox recommends standard stroke protocol care with the outpatient neurology follow-up -- We will continue to anticoagulate with warfarin, of note he is sub therapeutic this am -- Patient had an event 01/18 morning at 6:30 am where he was thought to have aspirated, he was made nothing by mouth once swallow therapy was ordered but he passed. -- Discussed left frontal lobe findings with the Dr. YOUNG from [facility] he feels that even though the acute infarcts are in the frontal area if the deep enough that it would cause more symptoms which may explain his right lower leg weakness. -- Dr. Mckeon also recommends that in the acute phase after the stroke agent may see waxing and waning symptoms which may be due to surrounding edema. -- I have contacted Dr. Thomas neurologist on 01/20, she agrees to see the patient that she believes she does not need any direct neurology follow-up as outpatient. -- I have contacted Dr. Joel Who is on-call this weekend for onc regarding patient's anticoagulation, discussed possible replacement of Coumadin with novel agent as he is not achieving optimal control with diet and INR. We agreed that the patient may benefit from xarelto and leave him on aspirin for the bovine valve. However patient's insurance required for him to pay for $500 per month and patient's family can not afford. Thus, we had to put him back on Coumadin. Due to low levels of INR, pt received two doses of enoxaparin. On the day of discharge, patient's INR levels have improved to 1.6, he is discharged home on his usual home regimen with a follow-up INR lab -- Dr. Thomas recommends only a PCP follow-up, but she will be available over the phone to the PCP if they need to reach her. # hypertension, chronic active improved -- Patient's hydrochlorothiazide and lisinopril were restarted -- Increased lisinopril dose to 20 mg twice a day #Acute hypoxic episode on 01/18 am with spontaneous recovery -- Devang catherine was called this am, pt was seen by the night hospitalist on 01/18. Thought have been related to aspiration versus mucus plugging, CXR showed ( reviewed by me) showed no evidence of mucus plugging or aspiration -- Etiology unclear, could be post stroke waxing waning symptomata # heart disease, chronic active -- Aspirin, statin and Lisinopril # bronchitis, poa resolved -- Chest x-ray is ordered : No acute findings -- Consider Augmentin if there is concern -- We will continue to monitor he does have a mild leukocytosis -- He declined breathing tx per RT # Tobacco abuse, active chronic -- Pt declines nicotine patch, states he will quit now for sure. # Chronic atrial fibrillation, active -- Patient is in afib on tele, was supratherapeutic on arrival -- Pharmacy consult is placed on warfarin -- The patient may continue home dose Coumadin at discharge Code Status: I have discussed code status with patient and , patient was unable to help with this. is even more anxious and says unless he is Ethan or not cognitively intact, she would like for us to try everything. Thus, patient is left as full code All pertinent records are reviewed, family and patient were communicated the plan of care. Exam Vital Signs (Last) Date Time Temp Pulse Resp B/P Pulse Ox O2 Delivery O2 Flow Rate FiO2 01/21/17 10:56 36.7 80 18 149/84 96 Room Air 01/18/17 11:18 2.00 Exam Gen.: No acute distress Heart: Regular rate and regular rhythm Lungs: Clear to auscultation no crackles or wheezes Abdomen: Nontender nondistended normal bowel sounds Neuro exam CN II-12 grossly normal His leg strength has much improved in the right lower extremity. Finger agile qa tester strength is improved from yesterday Psych: Negative for anxiety or agitation Neck: Trachea central no JVD Skin is warm and dry Test 01/17/17 13:25 01/17/17 18:24 01/18/17 06:46 01/19/17 05:39 Neutrophils (%) (Auto) 76.6% (40-74) Lymphocytes (%) (Auto) 11.8% (14-46) Monocytes (%) (Auto) 10.6% (4-12) Eosinophils (%) (Auto) 0.4% (0-5) Basophils (%) (Auto) 0.3% (0-3) Activated Partial Thromboplast Time 46.9sec (22.8-33.0) Hemoglobin A1c 5.9% (4.8-5.6) Magnesium Level 1.9mg/dL (1.6-2.6) Total Bilirubin 1.0mg/dL (0.0-1.2) Aspartate Amino Transf (AST/SGOT) 22U/L (0-50) Alanine Aminotransferase (ALT/SGPT) 15U/L (0-44) Alkaline Phosphatase 76U/L (25-160) Total Protein 7.2g/dL (6.4-8.4) Albumin 3.7g/dL (3.4-5.0) Triglycerides Level 122mg/dL (0-149) Cholesterol Level 204mg/dL (100-199) LDL Cholesterol, Calculated 126.600mg/dL (0-99) VLDL Cholesterol 24.400mg/dL HDL Cholesterol 53mg/dL (>39) Cholesterol/HDL Ratio 3.85 (0.0-4.4) Hold [place] Top Tube Received (Received) Urine Color Yellow (YELLOW) Urine Appearance Clear (CLEAR,HAZY) Urine pH 5.0 (5.0-8.0) Urine Specific [place] 1.005 (1.003-1.035) Urine Protein Tracemg/dL (NEG,TRACE) Urine Glucose (UA) Negativemg/dL (NEGATIVE) Urine Ketones Negativemg/dL (NEGATIVE) Urine Occult Blood Trace (NEGATIVE) Urine Nitrite Negative (NEGATIVE) Urine Bilirubin Negative (NEGATIVE) Urine Urobilinogen Normalmg/dL (NORMAL) Urine Leukocyte Esterase Negative (NEGATIVE) Urine RBC 3-10/hpf (0-2) Urine WBC 0-5/hpf (0-5) Urine Epithelial Cells Occasional/hpf (NONE-MOD) Urine Crystals None seen (NONE SEEN) Urine Bacteria None/hpf (NONE-FEW) Urine Hyaline Casts None/lpf (NONE) Urine Granular Casts None seen (NONE SEEN) Urine Waxy Casts None seen (NONE SEEN) Urine Red Blood Cell Casts None seen (NONE SEEN) Urine White Blood Cell Casts None seen (NONE SEEN) Urine Mucus None seen (None Seen) Urine Trichomonas None seen (NONE SEEN) Urine Yeast None (NONE SEEN) Urinalysis Comment None Urine Culture Reflexed Not indicated Troponin T 0.010ug/L (0.0-0.011) Hold [place] Top Tube Received (Received) White Blood Count 8.4th/mm3 (3.8-10.1) Red Blood Count 5.22mil/mm3 (4.40-5.80) Hemoglobin 15.7g/dL (13.8-17.2) Hematocrit 46.4% (41.0-50.0) Mean Corpuscular Volume 88.9fL (81-100) Mean Corpuscular Hemoglobin 30.1pg (27.0-35.0) Mean Corpuscular Hemoglobin Concent 33.8% (32.0-37.0) Red Cell Distribution Width 13.7% (12.3-15.4) Platelet Count 152bil/L (150-400) Sodium Level 144mEq/L (134-144) Potassium Level 3.9mEq/L (3.5-5.2) Chloride Level 106mEq/L (97-108) Carbon Dioxide Level 26mmol/L (18-29) Blood Urea Nitrogen 19mg/dL (8-27) Creatinine 0.90mg/dL (0.76-1.27) Estimat Glomerular Filtration Rate 87mL/min (>59) Glucose Level 113mg/dL (60-99) Calcium Level 8.6mg/dL (8.5-10.1) Test 01/21/17 06:00 Prothrombin Time 17.4sec (8.1-12.5) Prothromb Time International Ratio 1.61ratio Discharge Medications Discharge Medications Aspirin Chew (Aspirin Chew) 81 Mg Chew 81 MG PO DAILY Prescribed by: YADIRA JAUREGUI DO Atorvastatin (Lipitor) 40 Mg Tablet 40 MG PO DAILY Prescribed by: YADIRA JAUREGUI DO Hydrochlorothiazide (Hydrochlorothiazide) 25 Mg Tablet 25 MG PO DAILY (Reported ) Lisinopril (Lisinopril) 20 Mg Tablet 20 MG PO BID Prescribed by: YADIRA JAUREGUI DO Ubiquinol (Ubiquinol) 100 Mg Capsule 300 MG PO DAILY (Reported) Warfarin Sodium (Coumadin) 6 Mg Tablet 6 MG PO DAILY (Reported) Additional med instructions Please note new medication atorvastatin YOur Lisinopril is increased to 20 mg BID to better control your BP Followup Plan Follow-up plan F/U with PCP in one week. PCP to seek advice from Dr. Thomas as needed for neurology Discharge Diet: Heart Healthy Patient Instructions F/U with coumadin clinic on 01/23/17 for a f/u INR to be sent to PCP Time spent 35 min Yadira Jauregui DO Jan 21, 2017 11:47
--- NOTE | 2017-01-21 12:06 | NUR ---
Social Work note - Discharge ASSEMBLY MACHINE TOOL SETTER met with pt - Pt's . ASSEMBLY MACHINE TOOL SETTER assisted pt and in answering questions about advanced directives. Pt states that he is feeling better - MD identifies that he is able to go home and he states that he is ready. Pt will follow up with PCP for INR labs. Plan: Home with in POV - no other needs identified. ALEXANDREA Sutherland
--- NOTE | 2017-01-21 12:26 | NUR ---
discharge paperwork reviewed, no questions at this time. Belongings bagged and transported to car by pt's . pt refuses a W/C ride, escorted to elevator by this RN. pt denies pain or distress. pt to return to private home via private car driven by .
== END 2017-01-21 12:25 | disposition home or self-care (01) | DRG 66 ==
LOC: SED 12:58 → MPC 15:25 → CCU 01-18 11:20 → PCC 01-18 17:50 → MPC 01-18 21:07
PROVIDERS: ADMIT Family Medicine; ATTEND Family Medicine
DX: I63.9 Cerebral infarction, unspecified (principal); I48.2 Chronic atrial fibrillation; Z79.01 Long term (current) use of anticoagulants; I10 Essential (primary) hypertension; I25.10 Atherosclerotic heart disease of native coronary artery without angina pectoris; E78.5 Hyperlipidemia, unspecified; F17.210 Nicotine dependence, cigarettes, uncomplicated; Z95.2 Presence of prosthetic heart valve

== ENCOUNTER 2017-01-23 14:54 | Emergency (ER) | payer MEDICARE ==
[~2017-01-23] VITALS: Ht 177.8 cm; Wt 100.0 kg
[~2017-01-23 14:54] MED LIST: ASPI81TA3 PO; ATOR10TA66 PO; HYDR25TA4 PO; LIP40 PO; LISI-567 PO; RIVA15TA PO; UBIQ100C PO; WARF6TAB PO
[2017-01-23 15:03] VITALS: BP 134/81; PULSE 83; RESP 12; O2SAT 96
--- NOTE | 2017-01-23 15:56 | DRSVH ---
PROCEDURE: CT BRAIN WITHOUT CONTRAST ([id number]) INDICATIONS: R side weakness TECHNIQUE: Noncontrast 4.5 mm thick angled axial sections acquired from the foramen magnum to the vertex, with c oronal reformats. COMPARISON: MRI brain 01/17/2017; CT brain 01/17/2017, 06/09/2013 FINDINGS: Image quality: Excellent. CSF spaces: Basal cisterns are patent. No extra-axial fluid collections. The ventricles are symmet konstantin in size and shape. Brain: No intracranial bleeds or masses. No asymmetrical vascular hyperdensity. There is cerebral v olume loss for age, with resultant ventricular and sulcal prominence. There are periventricular and deep white matter chronic small vessel ischemic changes. Chronic right frontal, left posterior pariet al and left occipital infarcts again noted. Right parafalcine calcified meningioma is unchanged. Ther e is intracranial internal carotid artery atherosclerosis. Skull and face: Calvarium and visualized facial bones appear intact, without suspicious lesions. Sinuses: Visualized sinuses and mastoids are clear. IMPRESSION: 1. No intracranial hemorrhage. No secondary signs of acute ischemic infarct. 2. Chronic bilateral cerebral infarctions. 3. Stable right parafalcine meningioma. Dictated by: Jose Taylor M.D. on 01/23/2017 at 15:51 Approved by: Jose Taylro M.D. on 01/23/2017 at 15:54
--- NOTE | 2017-01-23 16:43 | ED.REPORT ---
HPI-Neurologic Deficit Date of Service Jan 23, 2017 ED Provider: Dr. Mason 76 y/o male with a hx of Afib, HTN, hypercholesterolemia, CVA, and coronary atherosclerosis on Coumadin presents to the ED via EMS complaining of intermittent right leg weakness, onset 3 days ago. The pt was seen at the ED last week for the same complaint and was admitted for CVA. He was discharged 3 days ago. He states his sx seemed to worsen over the last two days but then resolved on his way to the ED today. Associated sx include right knee pain and swelling, due to which he has trouble sleeping. The pt denies coughing, fever, chest pain, diarrhea and abdominal pain. His INR prior to arrival was 2.6. Nursing Notes Stated Complaint: WEAKNESS Chief Complaint: Neuro Symptoms/ Deficits Nursing Notes Reviewed: Yes Allergies: Coded Allergies: amoxicillin (Verified Allergy, Unknown, 01/23/17) cephalexin (Verified Allergy, Unknown, 01/23/17) irbesartan (Verified Allergy, Unknown, 01/23/17) morphine (Verified Allergy, Unknown, 01/23/17) prednisone (Verified Allergy, Unknown, 01/17/17) Uncoded Allergies: DAIRY (Allergy, Unknown, 01/17/17) congestion EPHENEDRINE (Allergy, Unknown, 01/17/17) NAPROXINE (Allergy, Unknown, 01/17/17) Scheduled Aspirin Chew (Aspirin Chew) 81 Mg Chew 81 MG PO DAILY Atorvastatin (Lipitor) 40 Mg Tablet 40 MG PO DAILY Hydrochlorothiazide (Hydrochlorothiazide) 25 Mg Tablet 25 MG PO DAILY Lisinopril (Lisinopril) 20 Mg Tablet 20 MG PO BID Ubiquinol (Ubiquinol) 100 Mg Capsule 300 MG PO DAILY Warfarin Sodium (Coumadin) 6 Mg Tablet 6 MG PO DAILY General Time Seen by Provider: 16:43 Chief Complaint Weakness leg... (Right) Hx Obtained From: Patient, Spouse Arrived By: Walk-in Sudden in Onset?: No Onset Occurred: 3 days ago Symptom Duration: Since onset Location: : Leg right (right knee) Quality: Painful Radiation: : Does not radiate Severity: Current: Mild Severity: Maximum: Mild Recent Healthcare: Recent doctor visit, Recent hospitalization Similar Sx Previous: Yes Risk Factors NIH Stroke Scale Level of Consciousness: Alert and responsive (0) Ask Month & Age: Both questions right (0) Open/Close Eyes/Hand Pen Or Pencil Assembly Machine Operator: Performs both tasks (0) Horizontal EO Movements: None (0) Visual [place]: No visual loss (0) Facial Palsy: Normal symmetry (0) Right Arm Motor Drift (10s): No drift 10 sec (0) Left Arm Motor Drift (10s): No drift 10 sec (0) Right Leg Motor Drift (5s): No drift 5 sec (0) Left Leg Motor Drift (5s): No drift 5 sec (0) Limb Ataxia FNF/Heel-Anthony: No ataxia (0) Sensation (Arms/Legs/Face): No sensory loss (0) Language Aphasia: No aphasia, normal (0) Dysarthria: No dysarthria, normal (0) Extinction/Inattention: No exctinct/inattent (0) NIHSS Score: 0 Time NIHSS Performed: 17:15 Date NIHSS Performed: Jan 23, 2017 Past Medical History Past Medical History Coronary atherosclerosis of [place] coronary artery HTN murmur hypercholesterolemia afib CVA with residual R sided peripheral vision loss Past Surgical History None reported Smoking History Current Every Day Smoker, Unknown if Ever Smoker Social History Other Social History: Ambulatory Status Independent Review of Systems Constitutional: Denies: Fever Respiratory: Denies: Non-productive cough Cardiovascular: Denies: Chest pain GI: Denies: Abdominal pain, Diarrhea Musculoskeletal: Reports: Joint pain (right knee), Joint swelling (right knee) Neurologic: Reports: Weakness (right leg) Complete sys rev & neg: except as marked. Physical Exam Initial Vital Signs Vital Signs (First) Date Time Temp Pulse Resp B/P Pulse Ox O2 Delivery O2 Flow Rate FiO2 01/23/17 15:03 36.3 83 12 134/81 96 Room Air Initial VS: Reviewed Neck: Supple, Non-tender, Full range of motion Abdomen / GI: Soft, Non-tender Extremities: Vascular intact, Neuro intact, No swelling, No tenderness Skin: Warm, Dry, No cyanosis General/Constitutional: Awake, Alert, No acute distress, Cooperative Head / Eyes: Atraumatic, Normocephalic, PERRL, EOMI Respiratory / Chest: Atraumatic, Breath sounds NL, Breath sounds = bilat, No respiratory distress, No rales, No rhonchi, No wheezing Cardiovascular: Heart rate NL, Regular rhythm, Heart sounds NL, No gallop, No murmurs, No rubs Neurologic: Oriented X3, Speech NL, No motor deficits, No sensory deficits Interpretation & Diagnostics ECG Interpretation ECG Interpretation: A-fib. Rate 69 Non-specific T abnormalities, lateral leads Time: 17:56 Interpreted by: ED physician CT Head Interpretation IMPRESSION: 1. No intracranial hemorrhage. No secondary signs of acute ischemic infarct. 2. Chronic bilateral cerebral infarctions. 3. Stable right parafalcine meningioma. Dictated by: Jose Taylor M.D. on 01/23/2017 at 15:51 Approved by: Jose Taylor M.D. on 01/23/2017 at 15:54 Study: Head CT no contrast Interpretation / Wet Read by: Interpret - Radiologist Re-Eval/Medical Decision Med Decision/Clinical Course Symptoms of recurrent stroke they have completely resolved at this point. Discussed with neurology who requested CTA of the brain and MRI of the brain as well. Care transferred to Dr. Rooney pending imaging and laboratory evaluation. Source of Hx: Old records Consultation #1: Referral / Consult Name: Edna Estrella MD Consulted With: Neurology Call Returned at: 17:51 Business Solution Analyst: Will see patient Note: Dr. Clayton recommends admiting the pt. Consultation #2: Referral / Consult Name: Edna Estrella MD Consulted With: Neurology Call Returned at: 18:03 Note: Recommends doing an angio of the brain Counseled Regarding: Diagnosis, Lab results, Need for admission Discharge & Departure Shift Change Sign-Out Patient Care Transferred: Yes Discussed Complaint(s): Yes Laboratory Evaluation: Ordered, not yet done Imaging Studies: Ordered, not yet done Impression: Primary Impression: TIA (transient ischemic attack) Transient cerebral ischemia type: unspecified Qualified Code: G45.9 - Transient cerebral ischemic attack, unspecified Disposition: Home Discharge Condition All VS Reviewed: Yes Referrals: Arnaud Hampton MD (PCP) Care Transferred to: Dr. Rooney Care Transferred at: 18:00 Scribe Attestation Portions of this note were transcribed by Rae Roman. I,, personally performed the history, physical exam and medical decision-making;I reviewed and confirmed the accuracy of the information in the transcribed note. Signed by Danyel Gandhi. 01/23/17 18:05 copies to: Arnaud Hampton MD, Timothy S DO Jan 23, 2017 16:43 Rae Roman Jan 23, 2017 17:24
[2017-01-23 18:30] VITALS: BP 133/85; PULSE 62; RESP 19; O2SAT 95
[2017-01-23 18:57] LABS: BASOPHILS % (AUTO) 0.6 % (0-3); EOSINOPHILS % (AUTO) 2.2 % (0-5); MONOCYTES % (AUTO) 10.7 % (4-12); Mean Corpuscular Hemoglobin 30.1 pg (27.0-35.0); Mean Corpuscular Volume 86.1 fL (81-100); NEUTROPHILS % (AUTO) 56.8 % (40-74); Platelet Count 225 bil/L (150-400)
[2017-01-23 19:02] LABS: INR 2.51 ratio
[2017-01-23 20:00] VITALS: BP 148/68; PULSE 65; RESP 17; O2SAT 95
--- NOTE | 2017-01-23 20:23 | DRSVH ---
PROCEDURE: CT ANGIOGRAPHY OF THE BRAIN WITH AND WITHOUT CONTRAST ([id number]) INDICATIONS: recurrent stroke symptoms TECHNIQUE: Precontrast 4.5 mm thick angled axial sections acquired from the foramen magnum to the vertex. Afte r the administration of intravenous contrast, 1 mm thick sections acquired through the [place] of [place] is. Postcontrast 4.5 mm thick sections then re-acquired from the foramen magnum to the vertex. 3-di mensional brziqrh-tapontvvz-kyfvyvytzp (MIP) and/or volume rendering reformats were acquired of the c entral intracranial vasculature. For radiation dose reduction, the following was used: automated ex posure control, adjustment of mA and/or kV according to patient size. COMPARISON: [facility], CT, CT BRAIN WO CON, 01/23/2017, 15:47. [facility], MR, MR STROKE PROTOCOL, 01/17/2017, 19:42. [facility], CT, CT ANGIO BRAIN NECK TPA, 2016, 10:19. FINDINGS: Image quality: Excellent. Anterior circulation: Intracranial internal carotid arteries are normal in size and flow. Diminished flow within the left anterior cerebral artery is present , as before. The flow within the middle cer ebral arteries is normal and symmetric. The anterior communicating artery is seen. No aneurysms are seen. Posterior circulation: Visualized portions of the vertebral arteries demonstrate normal caliber, and join to form a normal appearing basilar artery. Flow within the posterior cerebral arteries is norm al and symmetric. No aneurysms are seen. CSF spaces: Ventricles are normal in size and shape. Basal cisterns are patent. No extra-axial flu id collections. Brain: No midline shift. No intracranial bleeds. Chronic left parieto-occipital lobe infarct is pre sent , as before. Chronic right frontal lobe infarct is present , as before. As before, there is a 15 mm diameter extra-axial dural based calcified mass within the right superior propulsing location. Gr ay-white matter interface appears intact. Skull and face: Calvarium and facial bones appear intact, without suspicious lesions. Sinuses: Visualized sinuses and mastoids are clear. IMPRESSION: 1. No significant change compared to the patient's recent head CTA examination performed on 01.18.17. 2. No change in right parafalcine meningioma. 3. No change in right frontal and left parietal occipital lobe infarcts. 4. No change in diminished left anterior cerebral artery flow. Dictated by: Jasen Lacey M.D. on 01/23/2017 at 20:18 Approved by: Jasen Lacey M.D. on 01/23/2017 at 20:22
[2017-01-23 20:54] LABS: APPEARANCE,URINE CLEAR (CLEAR,HAZY); COLOR,URINE YELLOW (YELLOW); PH,URINE 5.5 (5.0-8.0)
[2017-01-23 20:55] LABS: OCCULT BLOOD,URINE NEGATIVE (NEGATIVE); UROBILINOGEN,URINE NORMAL (NORMAL)
--- NOTE | 2017-01-23 21:03 | DRSVH ---
PROCEDURE: MRI BRAIN WITHOUT CONTRAST ([id number]) INDICATIONS: concern for new CVA TECHNIQUE: Non-contrast axial T1 spin echo, axial T2 fast spin echo, sagittal and axial FLAIR, coronal T2 fast s pin echo, axial gradient echo, axial diffusion and ADC through the brain. COMPARISON: [facility], MR, MR STROKE PROTOCOL, 01/17/2017, 19:42. [facility], CT, CT ANGIO BRAIN, 01/23/2017, 19:58. [facility], CT, CT BRAIN WO CON, 01/23/2017, 15: 47. FINDINGS: Image quality: Excellent. CSF spaces: Ventricles appear symmetric in size and shape. Basal cisterns are patent. No extra-axi al fluid collections. Brain: No intracranial bleeds or mass effects. There is cerebral volume loss for age. There are pe riventricular and deep white matter chronic small vessel ischemic changes. Brainstem appears normal. Diffusion-weighted images demonstrate several small regions of elevated signal intensity within the paramedian aspect of the left anterior and postero-superior frontal lobe, as before, which demonstra te moderate FLAIR signal elevation, which is increased. These lesions have increased slightly in size . Chronic right frontal and left parieto-occipital lobe infarcts are unchanged. No chronic ischemic i nsults. Normal intravascular flow voids are present. Skull and face: Calvarial bone marrow is normal in signal. Orbits are normal. Sinuses: Sinuses and mastoids are clear. IMPRESSION: 1. There has been expected further evolution of the now late subacute appearing left frontal lobe inf arcts, which are concordant with the diminished flow seen within the left anterior cerebral artery on multiple recent cross-sectional angiography examinations. 2. No change in right frontal, and left parieto-occipital lobe infarcts. 3. Volume loss and small vessel ischemic disease. Dictated by: Jasen Lacey M.D. on 01/23/2017 at 20:57 Approved by: Jasen Lacey M.D. on 01/23/2017 at 21:01
[2017-01-23 21:33] VITALS: BP 156/61; PULSE 67; RESP 21; O2SAT 95
[2017-01-23 23:11] VITALS: BP 156/61; PULSE 67; RESP 21; O2SAT 95
== END 2017-01-23 22:40 | disposition home or self-care (01) ==
LOC: SED 14:54
DX: G45.9 Transient cerebral ischemic attack, unspecified (principal); I48.91 Unspecified atrial fibrillation; I10 Essential (primary) hypertension; F17.200 Nicotine dependence, unspecified, uncomplicated; Z88.1 Allergy status to other antibiotic agents; Z88.5 Allergy status to narcotic agent; Z79.01 Long term (current) use of anticoagulants; Z88.8 Allergy status to other drugs, medicaments and biological substances; Z79.82 Long term (current) use of aspirin
CPT/HCPCS: 36415; 70450; 70496; 70551; 80053; 81000; 85025; 85610; 93005; 96374; 99285; J3360; Q9967

== ENCOUNTER 2017-01-27 10:31 | Inpatient (IN) | payer MEDICARE ==
[~2017-01-27] VITALS: Ht 177.8 cm; Wt 97.7 kg
[2017-01-27] VITALS (9 sets, daily range): BP systolic 111–145; BP diastolic 54–87; PULSE 73–101; RESP 16–27; O2SAT 92–94
[~2017-01-27 10:31] MED LIST changes: -ATOR10TA66 PO; -RIVA15TA PO
[2017-01-27 11:17] LABS: BASOPHILS % (AUTO) 0.2 % (0-3); EOSINOPHILS % (AUTO) 0.5 % (0-5); MONOCYTES % (AUTO) 5.8 % (4-12); Mean Corpuscular Hemoglobin 29.7 pg (27.0-35.0); Mean Corpuscular Volume 86.9 fL (81-100); NEUTROPHILS % (AUTO) 81.4 % (40-74); Platelet Count 221 bil/L (150-400)
--- NOTE | 2017-01-27 11:21 | DRSVH ---
PROCEDURE: X-RAY CHEST ONE VIEW, PORTABLE ([id number]) INDICATIONS: sob TECHNIQUE: One view of the chest was acquired. COMPARISON: [facility], CR, XR CHEST 2VW, 01/17/2017, 20:20. [facility], CR, XR CHEST 1VW (PORTABLE), 01/17/2017, 13:00. FINDINGS: Surgical changes and devices: Sternotomy. Lungs and pleura: No pleural effusions or pneumothorax. Blunting of the left costophrenic angle may be caused by a trace pleural effusion or pleural scarring. Lungs are otherwise clear. Mediastinum: Mediastinal contours appear normal. Heart size is normal. Bones and chest wall: No suspicious bony lesions. Overlying soft tissues appear unremarkable. IMPRESSION: Trace left effusion or pleural scarring. Dictated by: Ventura Nielsen M.D. on 01/27/2017 at 11:18 Approved by: Ventura Nielsen M.D. on 01/27/2017 at 11:19
[2017-01-27 11:37] LABS: Magnesium 1.9 mg/dL (1.6-2.6)
[2017-01-27 11:49] LABS: APPEARANCE,URINE CLEAR (CLEAR,HAZY); COLOR,URINE YELLOW (YELLOW); OCCULT BLOOD,URINE TRACE (NEGATIVE); PH,URINE 6.5 (5.0-8.0); UROBILINOGEN,URINE NORMAL (NORMAL)
--- NOTE | 2017-01-27 11:54 | ED.REPORT ---
HPI-Stroke / CVA Jan 27, 2017 ED Provider: Milton Jack MD Pt is a 76 year old male with a history of A-fib on Coumadin, hypertension, stroke x4 with residual deficits, hypercholesterolemia, recent TIA and coronary atherosclerosis who presents to the ED via EMS with right sided weakness that began this morning. Exact symptom onset is unknown ([id number]). Last known normal was 1100 last night. His symptoms began after waking up. Associated symptoms include slurred speech, difficulty lifting himself from the chair, confusion, right-sided weakness and facial asymmetry. This episode lasted approx. 15 minutes. It is unknown if the patient experienced a GLF or hit his head. Patient currently feels "groggy". Family and patient deny any chest pain , SOB, headache, nausea, vomiting or abdominal pain. Patient was recently seen in the ED on 01/23 for a TIA. Brain CT and MRI were obtained. MRI revealed frontal lobe infarcts and hospitalization was recommended. The patient was offered admission but declined and was discharged. Nursing Notes Stated Complaint: POSS TIA NOW RESOLVED Chief Complaint: Neuro Symptoms/ Deficits Nursing Notes Reviewed: Yes Allergies: Coded Allergies: amoxicillin (Verified Allergy, Unknown, 01/23/17) cephalexin (Verified Allergy, Unknown, 01/23/17) irbesartan (Verified Allergy, Unknown, 01/23/17) morphine (Verified Allergy, Unknown, 01/23/17) prednisone (Verified Allergy, Unknown, 01/17/17) Uncoded Allergies: DAIRY (Allergy, Unknown, 01/17/17) congestion EPHENEDRINE (Allergy, Unknown, 01/17/17) NAPROXINE (Allergy, Unknown, 01/17/17) Scheduled Aspirin Chew (Aspirin Chew) 81 Mg Chew 81 MG PO DAILY Atorvastatin (Lipitor) 40 Mg Tablet 40 MG PO DAILY Hydrochlorothiazide (Hydrochlorothiazide) 25 Mg Tablet 25 MG PO DAILY (Reported ) Lisinopril (Lisinopril) 20 Mg Tablet 20 MG PO BID Ubiquinol (Ubiquinol) 100 Mg Capsule 300 MG PO DAILY (Reported) Warfarin Sodium (Warfarin Sodium) 6 Mg Tablet 6 MG PO SuMoTuThSa (Reported) Warfarin Sodium (Warfarin Sodium) 4 Mg Tablet 4 MG PO WeFr (Reported) General Time Seen by Provider: 11:02 Chief Complaint Weakness Hx Obtained From: Patient, Spouse Arrived By: Ambulance Time last known well 1100 last night Sudden in Onset?: Yes Symptom Duration: 1 - 15 minutes Progression Since Onset: Gradually improving Associated with: Reports: Confusion, Denies: Nausea, Speech problem, Visual disturbance, Vomiting Pertinent Negative: Pt denies other symptoms Recent Healthcare: Recent doctor visit, Recent hospitalization Risk Factors )( TPA Administration/Criteria Stroke Thrombolytic Therapy : TPA Administered Intravenously: No, exclusion criteria )( CVA Risk Stratification Risk factors reviewed Past Medical History Past Medical History Coronary atherosclerosis of deering coronary artery HTN murmur hypercholesterolemia afib CVA with residual R sided peripheral vision loss Past Surgical History None reported Smoking History Never Smoker Social History Other Social History: , Local resident Ambulatory Status Independent Review of Systems Facial asymmetry Constitutional: Denies: Chills, Fever Respiratory: Denies: Shortness of breath Cardiovascular: Denies: Chest pain GI: Denies: Abdominal pain, Nausea, Vomiting Neurologic: Reports: Confusion, Slurred speech, Weakness, Denies: Headache, Vision change Complete sys rev & neg: except as marked. Physical Exam Initial Vital Signs Vital Signs (First) Date Time Temp Pulse Resp B/P Pulse Ox O2 Delivery O2 Flow Rate FiO2 01/27/17 10:56 36.5 78 21 129/60 92 Room Air 01/27/17 14:38 4 Initial VS: Reviewed Skin: Warm, Dry, No cyanosis Psychiatric: Mood/affect normal, Behavior normal, Normal thought content General/Constitutional: Awake, Alert, No acute distress Head / Eyes: Atraumatic, Normocephalic, PERRL Neck: Atraumatic, Supple, No meningismus Respiratory / Chest: Atraumatic, Breath sounds NL, Breath sounds = bilat, No respiratory distress Cardiovascular: Heart sounds NL, No gallop, No murmurs, No rubs, Peripheral circulation NL, Pulses = bilaterally Heart Rate / Rhythm: Positive: Irreg irregular rhythm Neurologic: Oriented X3, Speech NL, No motor deficits, No sensory deficits, CN II - XII intact, Reflexes equal bilat 4/5 elbow flexion/extension compared to the left slgihtly diminished strength to flex/extension of the right hip sensation intact to all 4 extremities No facial droop Upper Extremity / MS: Atraumatic, Neurologic intact, Vascular intact SKin tear to right elbow Lower Extremity / Pelvis / MS: Atraumatic, Neurologic intact, Vascular intact Interpretation & Diagnostics Lab Results Interpretation Result Diagram: 01/27/17 1110 01/27/17 1110 Test 01/27/17 11:10 01/27/17 11:25 White Blood Count 12.5th/mm3 (3.8-10.1) Red Blood Count 5.59mil/mm3 (4.40-5.80) Hemoglobin 16.6g/dL (13.8-17.2) Hematocrit 48.6% (41.0-50.0) Mean Corpuscular Volume 86.9fL (81-100) Mean Corpuscular Hemoglobin 29.7pg (27.0-35.0) Mean Corpuscular Hemoglobin Concent 34.2% (32.0-37.0) Red Cell Distribution Width 13.3% (12.3-15.4) Platelet Count 221bil/L (150-400) Neutrophils (%) (Auto) 81.4% (40-74) Lymphocytes (%) (Auto) 11.9% (14-46) Monocytes (%) (Auto) 5.8% (4-12) Eosinophils (%) (Auto) 0.5% (0-5) Basophils (%) (Auto) 0.2% (0-3) Prothrombin Time 26.0sec (8.1-12.5) Prothromb Time International Ratio 2.39ratio Sodium Level 138mEq/L (134-144) Potassium Level 3.7mEq/L (3.5-5.2) Chloride Level 97mEq/L (97-108) Carbon Dioxide Level 26mmol/L (18-29) Blood Urea Nitrogen 26mg/dL (8-27) Creatinine 1.10mg/dL (0.76-1.27) Estimat Glomerular Filtration Rate 69mL/min (>59) Glucose Level 192mg/dL (60-99) Calcium Level 9.7mg/dL (8.5-10.1) Magnesium Level 1.9mg/dL (1.6-2.6) Total Bilirubin 0.8mg/dL (0.0-1.2) Aspartate Amino Transf (AST/SGOT) 24U/L (0-50) Alanine Aminotransferase (ALT/SGPT) 29U/L (0-44) Alkaline Phosphatase 81U/L (25-160) Troponin T < 0.010ug/L (0.0-0.011) Total Protein 7.4g/dL (6.4-8.4) Albumin 3.8g/dL (3.4-5.0) Triglycerides Level 111mg/dL (0-149) Cholesterol Level 158mg/dL (100-199) LDL Cholesterol, Calculated 87.800mg/dL (0-99) VLDL Cholesterol 22.200mg/dL HDL Cholesterol 48mg/dL (>39) Cholesterol/HDL Ratio 3.29 (0.0-4.4) Urine Color Yellow (YELLOW) Urine Appearance Clear (CLEAR,HAZY) Urine pH 6.5 (5.0-8.0) Urine Specific [place] 1.015 (1.003-1.035) Urine Protein 100mg/dL (NEG,TRACE) Urine Glucose (UA) Negativemg/dL (NEGATIVE) Urine Ketones Negativemg/dL (NEGATIVE) Urine Occult Blood Trace (NEGATIVE) Urine Nitrite Negative (NEGATIVE) Urine Bilirubin Negative (NEGATIVE) Urine Urobilinogen Normalmg/dL (NORMAL) Urine Leukocyte Esterase Negative (NEGATIVE) Urine RBC 0-2/hpf (0-2) Urine WBC 0-5/hpf (0-5) Urine Epithelial Cells None/hpf (NONE-MOD) Urine Crystals None seen (NONE SEEN) Urine Bacteria None/hpf (NONE-FEW) Urine Hyaline Casts None/lpf (NONE) Urine Granular Casts Occasional (NONE SEEN) Urine Waxy Casts None seen (NONE SEEN) Urine Red Blood Cell Casts None seen (NONE SEEN) Urine White Blood Cell Casts None seen (NONE SEEN) Urine Mucus None seen (None Seen) Urine Trichomonas None seen (NONE SEEN) Urine Yeast None (NONE SEEN) Urinalysis Comment None Urine Culture Reflexed Not indicated ECG Interpretation ECG Interpretation: A-fib Rate 88 bpm normal axis normal intervals No ST segment elevation Compared to prior 01/23/2017- still in A-fib Time: 12:00 Interpreted by: ED physician X-Ray Chest Interpretation Chest Xray Interpretation: IMPRESSION: Trace left effusion or pleural scarring. Dictated by: Ventura Nielsen M.D. on 01/27/2017 at 11:18 Interpretation / Wet Read by: Interpret - Radiologist CT Head Interpretation IMPRESSION: 1. No acute intracranial abnormalities. 2. Old cerebral infarcts in the left frontal lobe and right frontal lobe. 3. Small right frontal parafalcine meningioma. 4. Cerebral volume loss and chronic microvascular ischemic changes. Dictated by: Ventura Nielsen M.D. on 01/27/2017 at 11:59 Study: Head CT no contrast Interpretation / Wet Read by: Interpret - Radiologist Re-Eval/Medical Decision Med Decision/Clinical Course Pt is a 76 year old male with a history of A-fib on Coumadin, hypertension, stroke x4 with residual deficits, hypercholesterolemia, recent TIA and coronary atherosclerosis who presents to the ED via EMS with right sided weakness that began this morning. Exact symptom onset is unknown ([id number]). Last known normal was 1100 last night. His symptoms began after waking up. Associated symptoms include slurred speech, difficulty lifting himself from the chair, confusion, right-sided weakness and facial asymmetry. This episode lasted approx. 15 minutes. It is unknown if the patient experienced a GLF or hit his head. Patient currently feels "groggy". Family and patient deny any chest pain , SOB, headache, nausea, vomiting or abdominal pain. Patient was recently seen in the ED on 01/23 for a TIA. Brain CT and MRI were obtained. MRI revealed frontal lobe infarcts and hospitalization was recommended. The patient was offered admission but declined and was discharged. Here in the emergency department the patient is initially afebrile, hemodynamically stable and in no apparent distress. Neurologic examination notable as above. I considered TPA however given the rapidly resolving symptoms and last known normal at 11 PM last night he is not a TPA candidate. Upper studies notable as below: Drug Scree negative Leukocytosis 11.5 Chemistry unremarkable except glucose 192 INR 2.6 EKG A-fib Rate 88 bpm normal axis normal intervals No ST segment elevation Compared to prior 01/23/2017- still in A-fib Chest X-ray Trace left effusion or pleural scarring. CT Head 1. No acute intracranial abnormalities. 2. Old cerebral infarcts in the left frontal lobe and right frontal lobe. 3. Small right frontal parafalcine meningioma. 4. Cerebral volume loss and chronic microvascular ischemic changes. During the patient's emergency department course he initially remained stable. I discussed his presentation with neurology Dr. Huntley recommended admission and the patient was amenable to this. The patient was topically noted to go into atrial fibrillation with rapid ventricular response in the 140s to 150s. This initially resolved after receiving IV diltiazem and fluids. Subsequently the patient was noted to develop a grand mal seizure which I witnessed. He had total body shaking and became unresponsive. The seizure spontaneously resolved but he was given 2 mg of IV Ativan shortly thereafter. He was then placed on a loading dose of 1500 mg of Keppra. Admitting hospitalist team was updated as to these events and he was admitted to the ICU. I did have some concern that his seizure could be caused by ischemic stroke which subsequently had evolved to hemorrhagic however repeat head CT obtained after his seizure event demonstrated no evidence of hemorrhage. Re-Evaluation/Progress #1: Time of Eval: 13:48 Re-Evaluation/Progress Note: Patient is rechecked. He is informed of his results and the recommendation to admit to the hospital. All questions about the intended treatment plan are addressed. Re-Evaluation/Progress #2: Time of Eval: 14:15 Re-Evaluation/Progress Note: Patient has become increasingly anxious and is tachycardiac in the 140's. Patient is hemodynamically stable. EKG revealed A-fib with RVR. Diltiazem IV drip is given to the patient. Re-Evaluation/Progress #3: Time of Eval: 15:23 Re-Evaluation/Progress Note: Patient is actively seizing. Keppra is administered. He is tachycadic with grand mal seizure. Re-Evaluation/Progress #4: Time of Eval: 14:36 Re-Evaluation/Progress Note: reports that the patient experieinced chest pain 2 days ago and he also endorses pain behind his left eye. Consultation #1: Referral / Consult Name: Hugo Jarrell MD Consulted With: Neurology Call Returned at: 12:28 Corporate Director Of Human Resources: Will see patient, Agrees with eval, Agrees with plan, Accepts admit Note: Recommends admission Consultation #2: Referral / Consult Name: Kwesi Garcia DO Consulted With: Hospitalist Call Returned at: 13:49 Corporate Director Of Human Resources: Will see patient, Will see in office, Agrees with plan, Accepts admit Consultation #3: Referral / Consult Name: Kwesi Garcia DO Consulted With: Hospitalist Call Returned at: 14:34 Corporate Director Of Human Resources: Agrees with eval, Agrees with plan Note: Informed of the plan to admit the patient to the ICU. Consultation #4: Referral / Consult Name: Darrian Garcia MD Consulted With: Hospitalist Call Returned at: 14:34 Corporate Director Of Human Resources: Will see patient, Agrees with eval, Agrees with plan, Accepts admit Counseled Regarding: Diagnosis, Lab results, Need for admission Patient Discharge & Departure Impression: Primary Impression: TIA (transient ischemic attack) Transient cerebral ischemia type: unspecified Qualified Code: G45.9 - Transient cerebral ischemic attack, unspecified Additional Impressions: Atrial fibrillation Atrial fibrillation type: chronic Qualified Code: I48.2 - Chronic atrial fibrillation Atrial fibrillation with RVR Grand mal seizure Anticoagulated on Coumadin Altered mental status Altered mental status type: unspecified Qualified Code: R41.82 - Altered mental status, unspecified Fall from ground level Disposition: ADMITTED TO HOSPITAL Discharge Condition All VS Reviewed: Yes Condition: Stable Referrals: Arnaud Hampton MD (PCP) Crit Care Except Billable Proc Time Spent: 165-194 minutes Services Performed: Patient management by me, Time spent at bedside, Reviewing test results, Reviewing imaging, Discussing patient care, Documentation in record, Time with fam/surrogate Scribe Attestation Portions of this note were transcribed by Vikash Rubio. I, Dr. Jack personally performed the history, physical exam and medical decision-making; I reviewed and confirmed the accuracy of the information in the transcribed note. Signed by: Danyel Morrow, 01/27/17 1530. copies to: Arnaud Hampton MD, Beck O MD Jan 27, 2017 11:54 VIKASH RUBIO Jan 27, 2017 12:04
[2017-01-27 12:04] LABS: INR 2.39 ratio
--- NOTE | 2017-01-27 12:04 | DRSVH ---
PROCEDURE: CT BRAIN WITHOUT CONTRAST ([id number]) INDICATIONS: neuro changes TECHNIQUE: Noncontrast 4.5 mm thick angled axial sections acquired from the foramen magnum to the vertex, with c oronal reformats. COMPARISON: [facility], MR, MR BRAIN WO CON, 01/23/2017, 20:21. [facility], CT, CT BRAIN WO CON, 01/23/2017, 15:47. FINDINGS: Image quality: Excellent. CSF spaces: Basal cisterns are patent. No extra-axial fluid collections. The ventricles are symmet konstantin in size and shape. Brain: There are old cerebral infarct in the left parietal lobe and right frontal lobe with associat ed encephalomalacia. A calcified meningioma is seen in the right frontal region adjacent to the anter ior falx, unchanged. No intracranial bleeds or masses. There is mild cerebral volume loss for age, w ith resultant ventricular and sulcal prominence. There are moderate periventricular and deep white m atter chronic small vessel ischemic changes. There is intracranial internal carotid artery atheroscl erosis. Skull and face: Calvarium and visualized facial bones appear intact, without suspicious lesions. Sinuses: Visualized sinuses and mastoids are clear. IMPRESSION: 1. No acute intracranial abnormalities. 2. Old cerebral infarcts in the left frontal lobe and right frontal lobe. 3. Small right frontal parafalcine meningioma. 4. Cerebral volume loss and chronic microvascular ischemic changes. Dictated by: Ventura Nielsen M.D. on 01/27/2017 at 11:59 Approved by: Ventura Nielsen M.D. on 01/27/2017 at 12:02
[2017-01-27] MEDS ORDERED: Alum-Mag Hydrox-Simeth 30 mL Suspension PO PRN ×2 (12:30→13:50)
[2017-01-27] MEDS ORDERED: Ondansetron 2 mg/mL 2 mL Inj IVPUSH PRN ×2 (12:30→13:50)
[2017-01-27] MEDS ORDERED: WARF6TAB6 PO (12:57)
[2017-01-27] MEDS ORDERED: WARF4TAB6 PO (12:57)
--- NOTE | 2017-01-27 13:03 | NUR ---
Evaluation completed. Please go to "Notes" then click on "Assessments and Notes" (bottom left corner of screen). Then select appropriate discipline tab on top of screen.
[2017-01-27] MEDS ORDERED: Polyethylene Glycol (PEG) 17 Gm Powder PO PRN (13:50)
[2017-01-27] MEDS ORDERED: Labetalol 5 mg/mL 4 mL Inj IVPUSH PRN (13:50)
[2017-01-27] MEDS ORDERED: Diltiazem 5 mg/mL 5 mL Inj ONE (14:12)
[2017-01-27] MEDS ORDERED: levETIRAcetam Inj 1,000 MG in IV Premix 1 EACH IV ONE (14:30)
[2017-01-27] MEDS ORDERED: levETIRAcetam Inj 1,500 MG in Dextrose 5% 100 ML IV ONE (14:35)
[2017-01-27] MEDS ORDERED: levETIRAcetam 500 mg/100 mL NS IV ONE ×2 (15:05)
--- NOTE | 2017-01-27 15:24 | DRSVH ---
PROCEDURE: X-RAY CHEST ONE VIEW, PORTABLE ([id number]) INDICATIONS: sob, wet sounding TECHNIQUE: One view of the chest was acquired. COMPARISON: [facility], CR, XR CHEST 1VW (PORTABLE), 01/27/2017, 10:57. FINDINGS: Surgical changes and devices: None. Lungs and pleura: There are small pleural effusions bilaterally. Increased pulmonary vascularity susp icious for mild pulmonary edema secondary to congestive heart failure. No pneumothorax. Mediastinum: Mediastinal contours appear normal. Heart size is mildly increased. Bones and chest wall: No suspicious bony lesions. Overlying soft tissues appear unremarkable. IMPRESSION: Congestive heart failure. Dictated by: Ventura Nielsen M.D. on 01/27/2017 at 15:21 Approved by: Ventura Nielsen M.D. on 01/27/2017 at 15:22
--- NOTE | 2017-01-27 15:35 | DRSVH ---
PROCEDURE: CT BRAIN WITHOUT CONTRAST ([id number]) INDICATIONS: now having seizures, bleeding? TECHNIQUE: Noncontrast 4.5 mm thick angled axial sections acquired from the foramen magnum to the vertex, with c oronal reformats. COMPARISON: [facility], CT, CT BRAIN WO CON, 01/23/2017, 15:47. [facility], MR, MR BRAIN WO CON, 01/23/2017, 20:21. [facility], CT, CT BRAIN WO CON, 01/27/2017, 11:32 . FINDINGS: Image quality: Excellent. CSF spaces: Basal cisterns are patent. No extra-axial fluid collections. The ventricles are symmet konstantin in size and shape. Brain: There are multifocal infarcts bilaterally, unchanged. No intracranial bleeds. A calcified men ingioma is present in the right frontal area nearly. There is cerebral volume loss for age, with resu ltant ventricular and sulcal prominence. There are periventricular and deep white matter chronic sma ll vessel ischemic changes. There is intracranial internal carotid artery atherosclerosis. Skull and face: Calvarium and visualized facial bones appear intact, without suspicious lesions. Sinuses: Visualized sinuses and mastoids are clear. IMPRESSION: 1. Stable exam. No acute intracranial bleed. 2. Multifocal cerebral infarcts bilaterally. 3. Calcified right parafalcine meningioma. Dictated by: Ventura Nielsen M.D. on 01/27/2017 at 15:27 Approved by: Ventura Nielsen M.D. on 01/27/2017 at 15:33
--- NOTE | 2017-01-27 16:04 | PCM.HPMED ---
Subjective Date of Service Jan 27, 2017 Primary Provider: Admitting Physician: Primary Care Physician: Arnaud Hampton MD Attending Physician: Admit Status: From the Emergency Department, Admit to [facility] Team Chief Complaint: Right sided weakness, slurred speech History of Present Illness: Alvaro Daniels is a 76 year old male with past medical history significant for hypertension, CAD s/p 2 vessel CABG, Atrial Fibrillation on coumadin, bovine AV valve, HLD, and multiple TIA/CVA episodes presented to the [facility] Emergency Department with complaints of right sided weakness of unknown duration. He went to bed at 2300 on 01/27 without any symptoms and awoke with his symptoms. The family reported some slurred speech, confusion, facial drooping and difficulty ambulating. He denied any headache, vision changes, chest pain, SOB, nausea/ vomiting. He was recently hospitalized on 01/17 for a CVA and came to the ED on 01/23 where an MRI revealed frontal lobe infarcts but the patient declined hospitalization at that time. He was admitted to the [facility] but before he left the ED his heart rate went into the 140-150 range and he had a subsequent grand mal seizure. He was given Diltiazem for his HR and received 2mg Ativan and a Keppra load and rerouted to the [facility] for further evaluation. Review of Systems: A comprehensive review of systems was performed and negative except as in the above HPI. Allergies Coded Allergies: amoxicillin (Verified Allergy, Unknown, 01/23/17) cephalexin (Verified Allergy, Unknown, 01/23/17) irbesartan (Verified Allergy, Unknown, 01/23/17) morphine (Verified Allergy, Unknown, 01/23/17) prednisone (Verified Allergy, Unknown, 01/17/17) Uncoded Allergies: DAIRY (Allergy, Unknown, 01/17/17) congestion EPHENEDRINE (Allergy, Unknown, 01/17/17) NAPROXINE (Allergy, Unknown, 01/17/17) Home Medications Aspirin Chew (Aspirin Chew) 81 Mg Chew 81 MG PO DAILY Atorvastatin (Lipitor) 40 Mg Tablet 40 MG PO DAILY Hydrochlorothiazide (Hydrochlorothiazide) 25 Mg Tablet 25 MG PO DAILY Lisinopril (Lisinopril) 20 Mg Tablet 20 MG PO BID Ubiquinol (Ubiquinol) 100 Mg Capsule 300 MG PO DAILY (Reported) Warfarin Sodium (Warfarin Sodium) 6 Mg Tablet 6 MG PO SuMoTuThSa Warfarin Sodium (Warfarin Sodium) 4 Mg Tablet 4 MG PO WeFr PMH CAD s/p 2 vessel CABG HTN HLD Afib on warfarin Bovine AV valve CVA/TIA Surgical History Bovine AV valve replacement 2 vessel CABG Right wrist surgery Achilles Tendon repair Family History Father of congestive heart failure Mother of old age Social History Hx Alcohol Use: No Hx Substance Use: No Hx Tobacco Use: Yes (half pack per day) Smoking Status: Never Smoker Living Arrangement: with Family Exam Vital Signs Vital Sign - Last Date Time Temp Pulse Resp B/P Pulse Ox O2 Delivery O2 Flow Rate FiO2 01/27/17 15:06 89 27 116/54 93 Nasal Cannula 4 01/27/17 10:56 36.5 Exam Gen: Elderly male laying in bed, not rousable but in NAD HEENT: NCAT. PERRLA, EOMI. Membranes pink and moist. Neck: Supple, no thyromegaly or JVD. CV: Irregularly irregular rhythm, regular rate. No murmur/rub/gallops Pulm: Poor inspiratory effort due to sedated state, coarse breath sounds without wheezing/rales/rhonchi Abd: Obese, soft, nontender nondistended. Bowel sounds normal, no appreciable organomegaly. Extremities: No cyanosis or edema; minimal clubbing Neuro: Unresponsive, unable to evaluate Psych: Unresponsive, unable to evaluate Lab and Diagnostics Result Diagram: 01/27/17 1110 01/27/17 1110 12-lead ECG A-fib Rate 88 bpm normal axis normal intervals No ST segment elevation Cardiac Echo Impressions Echo 01/18/17 Interpretation Summary Left ventricular wall thickness is mildly increased. The ejection fraction is estimated to be 60-65%. The left atrium is severely dilated. The right atrium is moderately dilated. There is mild mitral regurgitation. There is mild aortic regurgitation. There is a bioprosthetic aortic valve. The prosthetic aortic valve is well-seated. The ascending aorta is mildly enlarged. Assessment & Plan Alvaro Daniels is a 76 year old male with past medical history significant for hypertension, CAD s/p 2 vessel CABG, Atrial Fibrillation on coumadin, bovine AV valve, HLD, and multiple TIA/CVA episodes presented to the [facility] Emergency Department with complaints of right sided weakness of unknown duration. He went to bed at 2300 on 01/27 without any symptoms and awoke with his symptoms. Stroke-Like Symptoms, present on admission. Acute. Resolving. - Likely TIA as symptoms were resolving in ED prior to admission - Patient is still smokin - CT as above; note there were 2 done due to the seizure he had in ED - Monitor on telemetry - Lipid panel ordered - Warfarin ordered, dose per pharmacy - PT/OT/ST evaluation ordered - Echo ordered (last Echo 01/18 as above) - MRI stroke protocol ordered for AM - Continue Atorvastatin, Aspirin - Monitor on telemetry Atrial Fibrillation with RVR, present on admission. Acute RVR on chronic Atrial fibrillation. 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 Ongoing. - Patient had seizure in ED, received 2mg Ativan and was Keppra loaded - Consider continuing Keppra PO, IV if unable to take medication Hypertension, present on admission, chronic. Ongoing. 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 Stable. - Stable per Echo on 01/18 - Echo ordered - Warfarin dose per pharmacy Tobacco Dependence, present on admission, chronic. Stable. - Patient has long smoking history despite CVA/TIA continues to smoke - Cessation counselled - Nicotine patch as needed Acetaminophen for mild pain, fever, or headache as necessary. Zofran for nausea as needed. Bowel regimen as needed. SubQ heparin on board. SCD's in place. Patient Disposition: Patient was admitted as an inpatient for anticipated LOS > 2 midnights due to severity of presenting symptoms, medical complexity, and ongoing medical work up. Patient is FULL CODE - a lengthy discussion was had with the family and a POLST form will be filled out this admission. VTE Prophylaxis: Sub-Q Heparin (Unfractionated) VTE Mechanical Devices: Intermittant Pneumatic CD Resuscitation Status: CPR: Attempt Resuscitation Attending Statement The patient was seen and examined together with Dr. Ramires on 01/27/2017 and I agree with the history, exam and plan as outlined in the note above. . copies to: Arnaud Hampton MD, Jeffery S DO Jan 27, 2017 15:52 Darrian Garcia MD Jan 28, 2017 07:54
--- NOTE | 2017-01-27 16:24 | PCM.PHAPRO ---
Progress Date of Service: Jan 27, 2017 Warfarin dosing Indication: Afib Home Dose: 4mg We,Fr 6mg all other days Anticoagulation Trends: Date INR 2.39 INR change Warf Dose 6MG GOAL INR: 2-3 Pharmacy will continue to follow daily. Thank you for consulting pharmacy in the care of this patient. Darrian Cano Jan 27, 2017 16:24
[2017-01-27] MEDS ORDERED: MeTOProlol 1 mg/mL 5 mL Inj IVPUSH PRN (19:35)
--- NOTE | 2017-01-27 19:43 | NUR ---
Admit note/Sedation Patient admitted to 2006 from [facility] ER via gurney. Patient sedated but arousable, nonverbal until end of shift. VSS, tele A flutter 80-90's. Skin wound on right elbow assessed, cleansed and new drsg applied. Incont of urine x 1. Family at bedside and instructed on poc, call light, tv and phone. MD at bedside this evening to answer family's questions and re eval poc. Report given to Lizbeth and at bedside hand off patient more verbal, speech clearer and patient following commands.
[2017-01-27] MEDS ORDERED: 0.9% Sodium Chloride 1,000 ML IV SCH (20:50)
[2017-01-28] VITALS (10 sets, daily range): BP systolic 121–137; BP diastolic 68–79; PULSE 70–90; RESP 18–26; O2SAT 89–94
[2017-01-28] MEDS: levETIRAcetam 500 mg/100 mL NS IV SCH ×4 (00:58→14:39)
[2017-01-28 02:39] LABS: BASOPHILS % (AUTO) 0.2 % (0-3); EOSINOPHILS % (AUTO) 0.8 % (0-5); MONOCYTES % (AUTO) 10.2 % (4-12); Mean Corpuscular Hemoglobin 30.1 pg (27.0-35.0); Mean Corpuscular Volume 87.8 fL (81-100); NEUTROPHILS % (AUTO) 72.3 % (40-74); Platelet Count 188 bil/L (150-400)
--- NOTE | 2017-01-28 05:05 | NUR ---
Neuro Drowsy but awakens intermittently on his own at times. He falls back to sleep afterwards. Md aware of it and pt unable to take po at this time. ASA given NC tonight. Withheld giving any PO meds tonight due sedation. Pt noted to be more awake towards this am. Frequent oral care done. Generalized weakness R>L but able to GIRALDO. Mild right facial droop noted. Mumbles and delayed with speech at times. He was able state his name and the correct date tonight. Telemetry Aflutter HR in 70s-80s. 02sat in mid 90s on 3L. Addendum: 01/28/17 at 0619 by JACKIE EASTMAN RN Pt much more awake this am. Noted to have intermittent congested cough with no sputum noted. 02sat 93-94% on 3L. Mild dsypnea with exertion noted. made aware with new order noted.
[2017-01-28] MEDS ORDERED: Albuterol-Ipratropium 3 mL Inhalation Solution NEB ONE (06:40)
[2017-01-28 12:15] LABS: INR 1.68 ratio
--- NOTE | 2017-01-28 13:09 | NUR ---
Evaluation completed. Please go to "Notes" then click on "Assessments and Notes" (bottom left corner of screen). Then select appropriate discipline tab on top of screen.
--- NOTE | 2017-01-28 13:32 | NUR ---
Evaluation completed. Please go to "Notes" then click on "Assessments and Notes" (bottom left corner of screen). Then select appropriate discipline tab on top of screen.
--- NOTE | 2017-01-28 13:39 | DRSVH ---
PROCEDURE: MRI STROKE PROTOCOL ([id number]) Pre- and post-contrast brain MRI, non-contrast brain MR angiogram, pre- and postcontrast neck MR mirlande ogram INDICATIONS: stroke TECHNIQUE: Brain: Noncontrast axial T1 spin echo, axial T2 fast spin echo, sagittal and axial FLAIR, coronal T2 fast spin echo, axial gradient echo, axial diffusion and ADC through the brain. After the administr ation of contrast, axial 3D VIBE of the cranial vasculature and brain. Brain MRA: Non-contrast 3-D time of flight MR angiogram, with multiple tdhkoes-mcoihrsso-xavqlfvnqh (MIP) reformats performed. Neck MRA: Axial and sagittal TruFISP through the neck. Coronal dynamic MR angiogram during administ ration of contrast in the arterial and venous phases, with 3-dimenstional ogxdzll-unmuzjgff-pjdiorxus n (MIP) reformats constructed from subtraction images. COMPARISON: [facility], CT, CT ANGIO BRAIN NECK TPA, 01/18/2017, 10:19. [facility], CT, CT ANGIO BRAIN, 01/23/2017, 19:58. [facility], CT, CT BRAIN WO CON, 01/27/2017 , 15:00. [facility], MR, MR BRAIN WO CON, 01/23/2017, 20:21. FINDINGS: Image quality: Excellent. BRAIN: CSF spaces: Ventricles are unchanged in size. There is parenchymal volume loss. Basal cisterns are patent. No extra-axial fluid collections. Brain: No intracranial bleeds or mass effects. Coto-white matter interface is normal. 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 This is unchan ged since previous exams. An additional area of focal encephalomalacia seen involving the right fron gissel lobe. Extensive confluent and scattered areas of increased signal intensity on the flair images is identified diffusely throughout the supratentorial brain, similar to the prior study. There domi nues to be a moderate-sized area of increased diffusion restriction along the left frontal lobe deep white matter. The size of the area of diffusion restriction is similar to the previous exam. No new areas of restricted diffusion are evident. No evidence of hemorrhagic conversion is evident. Brain stem appears normal. Normal intravascular flow voids are present. An avidly enhancing dural-based m ass measuring 1.6 x 1.3 cm is identified involving the right parafalcine region with associated dural tails. No additional enhancing lesions are identified. There is no abnormal parenchymal enhancemen t within the brain. Punctate foci of decreased signal intensity is identified involving the posterio r fossa structures, suggesting prior petechial hemorrhages, unchanged since the prior study. Skull and face: Calvarial marrow signal is normal. Orbits appear normal. Sinuses: Mucosal polyp versus mucous retention cyst involving the right maxillary sinus is noted. Th ere may be mild ethmoid air cell disease. No air-fluid levels are present. Otherwise, the paranasal sinuses and mastoid air cells are clear. BRAIN MR ANGIOGRAM: Anterior circulation: Intracranial internal carotid arteries are normal in size and enhancement. Pr ominently diminished versus absent flow within the left anterior cerebral artery is noted. The right anterior cervical artery is patent and otherwise unremarkable. The flow within the middle cerebral arteries is normal and symmetric. The anterior communicating artery is seen. No stenoses, occlusion s, or aneurysms. Posterior circulation: The visualized portions of the vertebral arteries demonstrate normal caliber, and join to form a normal appearing basilar artery. The flow within the posterior cerebral arteries is normal and symmetric. No stenoses, occlusions, or aneurysms. NECK MR ANGIOGRAM: Carotids: Great vessels demonstrate a conventional anatomy as they arise from the aortic arch. The origins of the common carotid arteries appear patent. The calibers and courses of both common caroti d arteries are normal. Mild atherosclerotic irregularity involving the bilateral carotid bulbs is in cidentally noted. The internal carotid arteries demonstrate normal course and caliber. Posterior circulation: The origins of the vertebral arteries appear patent. More superior portions of both vertebral arteries demonstrate normal course and caliber, and join to form a normal appearing basilar artery. Miscellaneous: Subclavian arteries appear patent. Pre-contrast images through the neck show no soft tissue abnormalities. IMPRESSION: BRAIN MRI: 1. Unchanged left frontal lobe ischemia without hemorrhagic conversion is located along the left ant erior cerebral artery distribution. No new areas of ischemia. 2. 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 3. Mild parenchymal volume loss and chronic small vessel ischemic changes. 4. Unchanged right parafalcine meningioma. BRAIN MR ANGIOGRAM: 1. Diminished/absent flow within the left anterior cerebral artery explains the left frontal lobe is chemia. 2. The remainder of the intracranial vessels are otherwise patent and unremarkable. NECK MR ANGIOGRAM: 1. The carotid and vertebral arteries are patent bilaterally without high-grade stenosis, aneurysm, or dissection. No occlusions. 2. Mild atherosclerosis of the bilateral carotid bulbs. The estimate of stenosis included in the report of the imaging study was calculated using the NASCET method Dictated by: Tyler Ren M.D. on 01/28/2017 at 12:25 Approved by: Tyler Ren M.D. on 01/28/2017 at 12:37
--- NOTE | 2017-01-28 16:37 | NUR ---
Social Work- Multidisciplinary Rounds Pt discussed in rounds. Pt to receive MRI. PT, OT, and ST to see pt. PT recommending SNF. SW unable to see pt today due to high census. SW will continue to follow for assessment and SNF discharge planning. Ysabel Coleman MSW
--- NOTE | 2017-01-28 17:44 | NUR ---
Activity/Pain/Nuero's Patient a/o x 2, c/o right side and hip pain, Tylenol x 1 given with moderate effect. Patient oob with one person assist and walker, sat in chair for approx 3 hrs db well. Nuero's mild right side weakness and slight right facial droop. Patient denies numbness or tingling on right side. Patient db diet well. VSS, tele A flutter.
--- NOTE | 2017-01-28 19:13 | PCM.PNMED ---
Subjective Date of Service Jan 28, 2017 Subjective Overnight Events. No acute events overnight. (Vitals and O2 status, UOP, BMs, agitation, Medication changes). Patient up in chair at bed side. Patient was not entirely appropriate, although it was difficult to assess due to family member talking over patient. Marked right sided weakness was present in upper and lower extremities. Exam Vital Signs Vital Sign - Last Date Time Temp Pulse Resp B/P Pulse Ox O2 Delivery O2 Flow Rate FiO2 01/28/17 06:44 72 22 89 Nasal Cannula 3.00 01/28/17 03:21 36.6 121/75 Intake and Output 01/27/17 01/27/17 01/28/17 Cumulative From/Thru 15:00 23:00 07:00 01/27/17 10:56 - 01/28/17 06:40 Intake Total 100 ml 617 ml 717 ml Output Total 100 ml 900 ml 1000 ml Balance -100 ml 100 ml -283 ml -283 ml Intake Oral 0 ml 0 ml IV Total 100 ml 617 ml 717 ml Output Urine Total 100 ml 900 ml 1000 ml # Bowel Movements 0 0 Exam Gen: Elderly male laying in bed, not rousable but in NAD HEENT: NCAT. PERRLA, EOMI. Membranes pink and moist. Neck: Supple, no thyromegaly or JVD. CV: Irregularly irregular rhythm, regular rate. No murmur/rub/gallops Pulm: Poor inspiratory effort due to sedated state, coarse breath sounds without wheezing/rales/rhonchi Abd: Obese, soft, nontender nondistended. Bowel sounds normal, no appreciable organomegaly. Extremities: No cyanosis or edema; minimal clubbing Neuro: Unresponsive, unable to evaluate Psych: Unresponsive, unable to evaluate IVs and Medications Medications Reviewed: Medications were reviewed in detail Lab and Diagnostics Result Diagram: 01/28/1720201/28/17202 X-Rays, CTs and MRIs MRI STROKE PROTOCOL IMPRESSION: BRAIN MRI: 1. Unchanged left frontal lobe ischemia without hemorrhagic conversion is located along the left anterior cerebral artery distribution. No new areas of ischemia. 2. 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 3. Mild parenchymal volume loss and chronic small vessel ischemic changes. 4. Unchanged right parafalcine meningioma. BRAIN MR ANGIOGRAM: 1. Diminished/absent flow within the left anterior cerebral artery explains the left frontal lobe ischemia. 2. The remainder of the intracranial vessels are otherwise patent and unremarkable. NECK MR ANGIOGRAM: 1. The carotid and vertebral arteries are patent bilaterally without high- grade stenosis, aneurysm, or dissection. No occlusions. 2. Mild atherosclerosis of the bilateral carotid bulbs. The estimate of stenosis included in the report of the imaging study was calculated using the NASCET method Approved by: Tyler Ren M.D. on 01/28/2017 at 12:37 12-lead ECG A-fib Rate 88 bpm normal axis normal intervals No ST segment elevation Cardiac Echo Impressions Echo 01/18/17 Interpretation Summary Left ventricular wall thickness is mildly increased. The ejection fraction is estimated to be 60-65%. The left atrium is severely dilated. The right atrium is moderately dilated. There is mild mitral regurgitation. There is mild aortic regurgitation. There is a bioprosthetic aortic valve. The prosthetic aortic valve is well-seated. The ascending aorta is mildly enlarged. Assessment & Plan Alvaro Daniels is a 76 year old male with past medical history significant for hypertension, CAD s/p 2 vessel CABG, Atrial Fibrillation on coumadin, bovine AV valve, HLD, and multiple TIA/CVA episodes presented to the [facility] Emergency Department with complaints of right sided weakness of unknown duration. He went to bed at 2300 on 01/27 without any symptoms and awoke with his symptoms. Stroke-Like Symptoms, present on admission. Acute. Resolving. - Likely TIA as symptoms were resolving in ED prior to admission - Patient is still smokin - CT as above; note there were 2 done due to the seizure he had in ED - Monitor on telemetry - Lipid panel ordered - PT/OT/ST evaluation ordered - Echo ordered (last Echo 01/18 as above) - MRI stroke protocol as above. - Continue Atorvastatin, Aspirin, warfarin. - Dr. Jarrell with Neurology to see patient. Recommend EEG tomorrow. Atrial Fibrillation with RVR, present on admission. Acute RVR on chronic Atrial fibrillation. 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 Ongoing. - Patient had seizure in ED, received 2mg Ativan and was Keppra loaded - Consider continuing Keppra PO, IV if unable to take medication Hypertension, present on admission, chronic. Ongoing. 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 Stable. - Stable per Echo on 01/18 - Echo ordered - Warfarin dose per pharmacy Tobacco Dependence, present on admission, chronic. Stable. - Patient has long smoking history despite CVA/TIA continues to smoke - Cessation counselled - Nicotine patch as needed Acetaminophen for mild pain, fever, or headache as necessary. Zofran for nausea as needed. Bowel regimen as needed. SubQ heparin on board. SCD's in place. Patient Disposition: Patient was admitted as an inpatient for anticipated LOS > 2 midnights due to severity of presenting symptoms, medical complexity, and ongoing medical work up. Patient is FULL CODE - a lengthy discussion was had with the family and a POLST form will be filled out this admission. Pain Evaluation: Adequate Pain Control VTE Prophylaxis: Sub-Q Heparin (Unfractionated) VTE Mechanical Devices: Intermittant Pneumatic CD Resuscitation Status: CPR: Attempt Resuscitation Attending Statement The patient was seen and examined together with Dr. Live on 01/28/2017 and I agree with the history, exam and plan as outlined in the note above. . ELOY LIVE DO Jan 28, 2017 07:25 Darrian Garcia MD Jan 30, 2017 09:56
[2017-01-29] VITALS (7 sets, daily range): BP systolic 121–144; BP diastolic 74–85; PULSE 71–87; RESP 16–24; O2SAT 91–97
[2017-01-29] MEDS: levETIRAcetam 500 mg/100 mL NS IV SCH ×4 (01:14→13:08)
[2017-01-29 02:57] LABS: INR 1.66 ratio
--- NOTE | 2017-01-29 07:29 | NUR ---
Neuro No changes noted. No seizure like activities noted. Spouse at the bedside providing support and comfort. No overt complications noted.
--- NOTE | 2017-01-29 10:29 | NUR ---
Evaluation completed. Please go to "Notes" then click on "Assessments and Notes" (bottom left corner of screen). Then select appropriate discipline tab on top of screen.
--- NOTE | 2017-01-29 10:43 | NUR ---
Social Work Note: Multidisciplinary Rounds Pt was discussed in AM rounds today, per MD pt is not medically ready for discharge at this time. Per MD, pt will be undergoing EEG today which will contribute to the decision for final discharge care plan. PT recommending SNF at this time. Per OT, pt is doing a little better today and may be able to go home with home health vs. outpt from their standpoint. SW to continue to follow for final MD recommendations and orders pending EEG. PARMJIT Garcia
--- NOTE | 2017-01-29 12:22 | DRSVH ---
[facility] [address] [place] [address] Echocardiogram Report Name: CHIQUIS KNOTT RStudy Date : 01/29/2017 Height: 70 in Hospital Exam Location: [facility] Weight: 214 lb Gender: Male BSA: 2.1 m2 : 1940 Age: 76 yrs BP: 129/74 mmHg Reason For Study: CVA Ordering Physician: Charlie BraggistPerformed By: Hill Panchal Referring Physician: Dr. Arnaud Hampton Interpretation Summary There is normal left ventricular wall thickness. The ejection fraction is estimated to be 60-65%. Both atria are moderately dilated. The interatrial septum is intact with no evidence for an atrial septal defect. There is a bioprosthetic aortic valve. The prosthetic aortic valve is well-seated. There is mild aortic regurgitation. There is mild tricuspid regurgitation. Incidental finding of a hepatic cyst measuring approximately 3.0 x 3.2 cm is noted. Procedure: A two-dimensional transthoracic echocardiogram with color flow and Doppler was performed. The study quality was technically adequate. Comparison is made with the echocardiogram of 01/18/17. A contrast injection of Definity was performed to improve assessment of LV function. The patient was in atrial fibrillation with controlled ventricular rate during the exam. The patient had a heart rate of 70-91 beats per minute. Left Ventricle: The left ventricle is normal in size. There is normal left ventricular wall thickness. There is no thrombus. The ejection fraction is estimated to be 60-65%. There are no obvious focal wall motion abnormalities noted but poor endocardial definition reduces the sensitivity for the detection of such. Right Ventricle: The right ventricle is normal in size and function. Atria: Both atria are moderately dilated. The interatrial septum is intact with no evidence for an atrial septal defect. Mitral Valve: The mitral valve is normal in structure and function. There is mild mitral annular calcification. There is mild mitral regurgitation. Aortic Valve: There is a bioprosthetic aortic valve. The prosthetic aortic valve is well-seated. The prosthetic aortic valve function is normal. There is mild aortic regurgitation. Tricuspid Valve: The tricuspid valve is normal in structure and function. There is mild tricuspid regurgitation. Pulmonic Valve: The pulmonic valve is not well seen, but is grossly normal. There is no pulmonic valvular regurgitation. Great Vessels: The aortic root is normal size. The dimensions of the ascending aorta are normal. The pulmonary artery is normal size. The IVC is of normal diameter and collapses greater than 50% with a sniff. This suggests a low right atrial pressure of 3 mm Hg. Pericardium/ Pleura There is no pericardial effusion. There is no pleural effusion. Incidental finding of a hepatic cyst measuring approximately 3.0 x 3.2 cm is noted. MMode/2D Measurements & Calculations LVIDd: 4.4 cm LA dimension: 4.8 cm RA long axis LVOT diam LVIDs: 2.0 cm FS: 54.5 % LA A2 area: 28.7 cm RA area AoV Opening EPSS: 0.50 cm LA A4 area: 27.4 cm IVSd: 1.1 cm LA length (vol): 6.7 cm : 26.3 cm Ao root diam LVPWd: 1.1 cm LA vol: 100.0 ml RA vol LA vol index : 99.5 ml Aortic Jxn RA : 46.3 mm2 asc Aorta IVC diam: 2.3 cm Diam: 2.8 cm LV hernandez. diameter/BSA LV sys. diameter/BSA RVD1 (basal) RVD2 (mid) (cm/m^2): 2.1 (cm/m^2): 0.94 : 3.4 cm Doppler Measurements & Calculations Ao V2 max: 239.8 cm/secMV E max kumar MV E/A: 156.0 TR max kumar Ao max P.3 mmHg : 85.8 cm/sec Med Peak E' Kumar : 232.3 cm/sec Ao mean P.9 mmHg MV A max kumar TR max PG LVOT Max Kumar : 0.55 cm/sec E/E' med: 11.6 : 21.6 mmHg : 102.6 cm/sec PA V2 max : 81.6 cm/sec ROLDAN(I,D): 1.6 cm PA mean PG sev ratio: 0.44 AI P1/2t: 989.4 msec PA Accel Time AI dec slope : 0.13 sec : 109.7 cm/s2c MV dec time: 0.17 sec Ao V2 mean LV V1 max PG PA V2 mean : 177.2 cm/sec : 62.5 cm/sec Ao V2 VTI: 42.0 cmLV V1 VTI PA pr(Accel) ROLDAN(V,D): 1.6 cm2 : 18.6 cm : 21.6 mmHg ROLDAN indexed to BSA (cm^2/m^2): 0.75 Electronically signed by: Darshan Carrasco on Reading Physician:01/29/2017 12:21 PM
--- NOTE | 2017-01-29 14:36 | PCM.PNMED ---
Subjective Date of Service Jan 29, 2017 Subjective No acute events overnight. Patient is sitting up in bedside chair drinking coffee and talking with his . He denies any CP, SOB, ABD pain, Headache, or weakness at this time. states that he had a bit of a cough last night while laying in bed. She reports that he frequently gets a cough at night when he lays flat and sometimes needs a couple pillows to sleep well. ROS negative unless otherwise noted above. Exam Vital Signs Vital Sign - Last Date Time Temp Pulse Resp B/P Pulse Ox O2 Delivery O2 Flow Rate FiO2 01/29/17 13:22 36.7 77 20 144/85 93 Room Air 01/28/17 06:44 3.00 Intake and Output 01/28/17 01/28/17 01/29/17 Cumulative From/Thru 15:00 23:00 07:00 01/27/17 10:56 - 01/29/17 05:29 Intake Total 620 ml 100 ml 1437 ml Output Total 1000 ml 450 ml 2450 ml Balance -380 ml -350 ml -1013 ml Intake Oral 510 ml 100 ml 610 ml IV Total 110 ml 827 ml Output Urine Total 1000 ml 450 ml 2450 ml # Bowel Movements 0 Exam Constitutional: Alert and Awake. No acute Distress. Cooperative and Conversive Eyes: pupils equal, round, and reactive. EOMI. Heart: Regular Rate and Rhythm; no murmurs, No edema Lungs: Clear to Auscultation bilaterally, no wheeze, rales, or rhonchi ABD: soft, NT. Skin: Warm, Dry, No rashes noted. Neurological: no focal deficits noted. Equal strength bilaterally in Upper extremities and lower extremities. Psych: appropriate mood and affect. IVs and Medications IV Fluids Keppra 500mg 105ml @420ml/hr Medications Reviewed: Medications were reviewed in detail Medications Keppra 500mg 105 ml @420 ml/hr Lab and Diagnostics Item Value Date Time Triglycerides Level 111 mg/dL 01/27/17 1110 Cholesterol Level 158 mg/dL 01/27/17 1110 LDL Cholesterol, Calculated 87.800 mg/dL 01/27/17 1110 VLDL Cholesterol 22.200 mg/dL 01/27/17 1110 HDL Cholesterol 48 mg/dL 01/27/17 1110 Cholesterol/HDL Ratio 3.29 01/27/17 1110 Item Value Date Time Red Blood Count 5.15 mil/mm3 01/28/17202 Mean Corpuscular Volume 87.8 fL 01/28/17202 Mean Corpuscular Hemoglobin 30.1 pg 01/28/17202 Mean Corpuscular Hemoglobin Concent 34.3 % 01/28/17202 Red Cell Distribution Width 13.2 % 01/28/17202 Neutrophils (%) (Auto) 72.3 % 01/28/17202 Lymphocytes (%) (Auto) 16.2 % 01/28/17202 Monocytes (%) (Auto) 10.2 % 01/28/17202 Eosinophils (%) (Auto) 0.8 % 01/28/17202 Basophils (%) (Auto) 0.2 % 01/28/17202 Estimat Glomerular Filtration Rate 74 mL/min 01/28/17202 Calcium Level 8.8 mg/dL 01/28/17202 Total Bilirubin 0.8 mg/dL 01/28/17202 Aspartate Amino Transf (AST/SGOT) 21 U/L 01/28/17202 Alanine Aminotransferase (ALT/SGPT) 22 U/L 01/28/17202 Alkaline Phosphatase 72 U/L 01/28/17202 Total Protein 6.0 g/dL L 01/28/17202 Albumin 3.3 g/dL L 01/28/17202 Prothrombin Time 18.0 sec H 01/29/17219 Prothromb Time International Ratio 1.66 ratio 01/29/17219 Result Diagram: 01/28/1720201/28/17202 X-Rays, CTs and MRIs MRI STROKE PROTOCOL IMPRESSION: BRAIN MRI: 1. Unchanged left frontal lobe ischemia without hemorrhagic conversion is located along the left anterior cerebral artery distribution. No new areas of ischemia. 2. 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 3. Mild parenchymal volume loss and chronic small vessel ischemic changes. 4. Unchanged right parafalcine meningioma. BRAIN MR ANGIOGRAM: 1. Diminished/absent flow within the left anterior cerebral artery explains the left frontal lobe ischemia. 2. The remainder of the intracranial vessels are otherwise patent and unremarkable. NECK MR ANGIOGRAM: 1. The carotid and vertebral arteries are patent bilaterally without high- grade stenosis, aneurysm, or dissection. No occlusions. 2. Mild atherosclerosis of the bilateral carotid bulbs. The estimate of stenosis included in the report of the imaging study was calculated using the NASCET method Approved by: Tyler Ren M.D. on 01/28/2017 at 12:37 12-lead ECG A-fib Rate 88 bpm normal axis normal intervals No ST segment elevation Cardiac Echo Impressions Echo 01/29 Interpretation Summary There is normal left ventricular wall thickness. The ejection fraction is estimated to be 60-65%. Both atria are moderately dilated. The interatrial septum is intact with no evidence for an atrial septal defect. There is a bioprosthetic aortic valve. The prosthetic aortic valve is well-seated. There is mild aortic regurgitation. There is mild tricuspid regurgitation. Incidental finding of a hepatic cyst measuring approximately 3.0 x 3.2 cm is noted. 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 He went to bed at 2300 on 01/27 without any symptoms and awoke with his symptoms. Stroke-Like Symptoms, present on admission. Acute. Resolving. - Likely TIA as symptoms were resolving in ED prior to admission - Monitor on telemetry - Echo results EF 60-65% - MRI stroke protocol as above. - Continue Atorvastatin, Aspirin, warfarin. - Follow Dr. Jarrell recommendations as per EEG results today. Atrial Fibrillation with RVR, present on admission. Acute RVR on chronic Atrial fibrillation. 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 Ongoing. - Patient had seizure in ED, Continue Keppra - Consider continuing Keppra PO, IV if unable to take medication - Will adjust regimen following Dr. Jarrell's recommendations Hypertension, present on admission, chronic. Ongoing. 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 Stable. - Stable per Echo on 01/29 - Warfarin dose per pharmacy Tobacco Dependence, present on admission, chronic. Stable. - Patient has long smoking history despite CVA/TIA continues to smoke - Cessation counselled - Nicotine patch as needed Acetaminophen for mild pain, fever, or headache as necessary. Zofran for nausea as needed. Bowel regimen as needed. Famotidine 20mg PO for reflux sxs. SubQ heparin on board. SCD's in place. Patient Disposition: Patient was admitted as an inpatient for anticipated LOS > 2 midnights due to severity of presenting symptoms, medical complexity, and ongoing medical work up. Patient is FULL CODE - a lengthy discussion was had with the family and a POLST form will be filled out this admission. VTE Prophylaxis: Sub-Q Heparin (Unfractionated) VTE Mechanical Devices: Intermittant Pneumatic CD Resuscitation Status: CPR: Attempt Resuscitation Wesley Dalton DO Jan 29, 2017 14:36
[2017-01-29] MEDS ORDERED: Famotidine Inj 20 MG in IV Premix 1 EACH IV ONE (14:50)
--- NOTE | 2017-01-29 15:55 | NUR ---
Ambulate w/Nsg Pt is released to ambulate w/nsg w/FWW 2-3x/day as pt tolerates; PT will cont to see 2x/week to progress AD
--- NOTE | 2017-01-29 16:38 | NUR ---
spiritual care: pt request pt receiving care/procedure. will plan to follow
--- NOTE | 2017-01-29 18:43 | NUR ---
Tele/Respiratory/Neuro No reports of chest pain/pressure/discomfort. Tele AFIB/flutter 80s with occasional PVCs. No edema noted. No reports of SOB. SPO2 91% on RA. Patient denies cough, reports non productive coughing episodes last night. No reports of n/v/d/c or abdominal pain. Bowel tones active x4. Per report, episodes of incontinence -- brief on. 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 Voiding catie urine without complication. Alert and oriented x3, GIRALDO, reports full sensation. RN notes right leg drift/falls, upper extremities even, no facial droop noted, even facial symmetry. Ambulating SBA with no complication.
--- NOTE | 2017-01-29 23:01 | PROCED ---
[address] [address] EEG PATIENT: CHIQUIS KNOTT : 1940 MR#: [id number] ADMIT: 01/27/2017 JOB ID: [id number] DATE OF SERVICE: 01/29/2017 HISTORY: The patient is a 76-year-old man with a seizure. TECHNICAL DESCRIPTION: This digital EEG was recorded using 25 scalp and ear, and 2 EKG electrodes. It was reviewed in bipolar and referential montages following reformatting of the 10-20 International Electrode Placement System. During the recording, the patient was noted to be awake, drowsy, and asleep. The background was composed of a polymorphic mixture of theta and faster frequencies approximately 7 hertz. This is a very low voltage recording less than 10 microvolts. There were no focal, lateralized, or epileptiform discharges noted. The rest of the background was composed of low voltage faster frequencies. There were no seizures seen. There was abundant myogenic and movement artifact. Sleep was characterized by the attenuation of the alpha rhythm, the appearance of symmetrical vertex waves heralding stage 1 of sleep. This was followed by the development of symmetrical sleep spindles heralding stage 2 of sleep. The EKG rhythm strip revealed a heart rate of 60 to 120 beats per minute with occasional premature ventricular contractions noted. IMPRESSION: This electroencephalogram performed in the awake, drowsy, and asleep state is abnormal. The slow background is suggestive of mild cerebral cortical dysfunction/encephalopathy. This is a nonspecific finding and may be seen in a wide variety of different clinical conditions, including toxic, metabolic, hypoxic, autoimmune, ischemic, infectious and inflammatory conditions. It may also be seen secondary to medication. Clinical correlation is advised. The abnormal electrocardiogram may warrant a 12 lead electrocardiogram if this has not already been performed. Clinical correlation is advised.
[2017-01-30] MEDS: levETIRAcetam 500 mg/100 mL NS IV SCH ×2 (02:55)
[2017-01-30 03:32] LABS: INR 1.95 ratio
[2017-01-30 04:09] VITALS: BP 144/73; PULSE 65; RESP 18; O2SAT 95
[2017-01-30 07:59] VITALS: BP 129/81; PULSE 92; RESP 16; O2SAT 93
[2017-01-30 10:19] VITALS: PULSE 93
--- NOTE | 2017-01-30 10:37 | PCM.DIMED ---
Wesley Dalton DO 01/30/17 1037: Discharge Instructions Date of Service Jan 30, 2017 Dates of Hospitalization Jan 27, 2017 at 16:07 Discharge Diagnosis Discharge Diagnosis Stroke-Like Symptoms Atrial Fibrillation with RVR Grand Mal Seizure - Dr. Jarrell is of the opinion that your seizures are likely from you previous strokes. Hypertension Hyperlipidemia Presence of Bovine AV Valve Tobacco Dependence Medication Instructions Additional med instructions I will be prescribing you with Warfarin 5mg by mouth daily, we will schedule follow up with warfarin clinic in the next couple of days. I will be prescribing you with Keppra 500mg by mouth twice a day. This is an anti-seizure medication. We will schedule you with a follow up with Dr. Jarrell in the next few weeks. Test Results Test Results The results of the EEG show that you did not have any evidence of seizure activity. Diet Discharge Diet: Heart Healthy Activity Discharge Activity: Limited until seen by PCP (Please do not drive until your are evaluated by Neurology.) Call your provider Call your provider for: Fever or Chills, Shortness of breath, Bleeding, Chest pain, Vomitting, Excessive diarrhea, Weakness (unilateral) Patient Instructions Patient Instructions Do not drive until you have been evaluated by Neurology. Follow-up plan Please follow up with Warfarin clinic in the next few days. Please follow up with Dr. Jarrell in Neurology in the next few weeks. Please follow up with your primary care doctor in the next two weeks. Follow-up Provider: Arnaud Hampton MD Follow-up with PCP in: 2 weeks Provider: Hugo Jarrell MD Follow-up in: 2 weeks Alejandra Terrazas DO 01/30/175: Discharge Instructions Attending's Statement The patient was seen and examined together with Dr. Dalton on 01/30/17 and I agree with the history, exam and plan as outlined in the note above. Wesley Dalton DO Jan 30, 2017 10:37 Alejandra Terrazas DO Jan 30, 2017 20:45
[2017-01-30] MEDS ORDERED: KEP500TA PO (11:33)
--- NOTE | 2017-01-30 11:38 | NUR ---
Social Work Note: Initial Assessment/Multidisciplinary Rounds Data& Assessment: EMR reviewed. Pt was discussed in AM rounds today, per MD pt is getting closer to being medically ready to discharge. PT, OT, ST has cleared pt to return home with outpt services. SW met with pt at bedside to confirm discharge plan and assess for any unmet needs, SW role explained and discharge planning checklist provided. Alvaro Daniels is a 76 year old male admitted on 01/27/2017 for TIA, now resolved. Pt lives in [place] with his spouse in a one level home and does not require any DME at baseline. Pt is independent in his room with ambulation and has been independent with self care. MD does not identify any concerns for capacity for self care. Pt drives pt at baseline and will be transporting pt home at discharge. Pt does not have HH or SNF hx. Pt does not have LTC insurance or VA benefits. Pt has DPOA/AD paperwork at home, pt explained that his understands she should bring in a copy. Pt denies any other needs. No other discharge needs identified. Plan: Per MD pt is getting closer to being medically ready to discharge home via POV with outpt PT, OT, ST. Pt denies any other needs. No other MD orders identified. No other discharge needs identified. PARMJIT Garcia Addendum: 01/30/17 at 1152 by LISET WELCH SS Amended: Links added. Addendum: 01/30/17 at 1620 by LISET WELCH SS RN notified TELEHEALTH NURSE EDUCATOR that pt had questions regarding DPOA/AD paperwork. SW spoke with pt over the phone regarding basic directions for the paperwork, however pt ended up having more specific questions about the content of the paperwork. TELEHEALTH NURSE EDUCATOR notified RN that as a non medical professional it is not appropriate to speak or advise pt and pt on specific details of the paperwork and pt should follow up with her PCP, MD director financial analysis. PARMJIT Garcia
--- NOTE | 2017-01-30 14:08 | PCM.DC.MED ---
Discharge Summary Date of Service Jan 30, 2017 Dates of Hospitalization Date of Hospital Admission Jan 27, 2017 at 16:07 Date of Discharge: Jan 30, 2017 Providers: Admitting Physician: Darrian Garcia MD Primary Care Physician: Arnaud Hampton MD Attending Physician: Alejandra Terrazas DO Diagnosis at Time of Discharge Diagnosis at Time of Discharge TIA, POA, acute. Resolved Atrial Fibrillation with RVR, POA, acute on Chronic, Improved Grand Mal Seizure, POA, acute. Resolved Hypertension, POA, chronic. Stable Hyperlipidemia,POA, chronic. Stable Presence of Bovine AV Valve, POA, chronic. Stable Tobacco Dependence, POA, chronic. Active Consultations Neurology with Dr. Jarrell Procedures XRay, CTs & MRIs MRI STROKE PROTOCOL IMPRESSION: BRAIN MRI: 1. Unchanged left frontal lobe ischemia without hemorrhagic conversion is located along the left anterior cerebral artery distribution. No new areas of ischemia. 2. 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 3. Mild parenchymal volume loss and chronic small vessel ischemic changes. 4. Unchanged right parafalcine meningioma. BRAIN MR ANGIOGRAM: 1. Diminished/absent flow within the left anterior cerebral artery explains the left frontal lobe ischemia. 2. The remainder of the intracranial vessels are otherwise patent and unremarkable. NECK MR ANGIOGRAM: 1. The carotid and vertebral arteries are patent bilaterally without high- grade stenosis, aneurysm, or dissection. No occlusions. 2. Mild atherosclerosis of the bilateral carotid bulbs. The estimate of stenosis included in the report of the imaging study was calculated using the NASCET method Approved by: Tyler Ren M.D. on 01/28/2017 at 12:37 ECG 12 Lead A-fib Rate 88 bpm normal axis normal intervals No ST segment elevation Cardiac Echo Impression Echo 01/29 Interpretation Summary There is normal left ventricular wall thickness. The ejection fraction is estimated to be 60-65%. Both atria are moderately dilated. The interatrial septum is intact with no evidence for an atrial septal defect. There is a bioprosthetic aortic valve. The prosthetic aortic valve is well-seated. There is mild aortic regurgitation. There is mild tricuspid regurgitation. Incidental finding of a hepatic cyst measuring approximately 3.0 x 3.2 cm is noted. Electronically signed by: Darshan Carrasco on Reading Physician:01/29/2017 12:21 PM Other Diagnostics EEG IMPRESSION: This electroencephalogram performed in the awake, drowsy, and asleep state is abnormal. The slow background is suggestive of mild cerebral cortical dysfunction/encephalopathy. This is a nonspecific finding and may be seen in a wide variety of different clinical conditions, including toxic, metabolic, hypoxic, autoimmune, ischemic, infectious and inflammatory conditions. It may also be seen secondary to medication. Clinical correlation is advised. The abnormal electrocardiogram may warrant a 12 lead electrocardiogram if this has not already been performed. Clinical correlation is advised. Hugo Jarrell MD 01/29/172111 Brief History Alvaro Daniels is a 76 year old male with past medical history significant for hypertension, CAD s/p 2 vessel CABG, Atrial Fibrillation on coumadin, bovine AV valve, HLD, and multiple TIA/CVA episodes presented to the [facility] Emergency Department on 01/27 with complaints of right sided weakness of unknown duration. While in the ED the patient suffered what appeared to be a grand mal seizure and went into afib with RVR. The patient was given Diltiazem for rate control and was given 2mg of Ativan and was Keppra loaded to break the seizure. MRI of the head showed a frontal lobe infarct unchanged from 01/23. He underwent an EEG which failed to demonstrate ongoing seizure activity, and the patient's symptoms resolved prior to DC. Per Dr. Jarrell's interpretation of the EEG and clinical picture the patient's neurologic and seizure like activity were most likely secondary to his multiple prior CVAs with the possibility of an additional TIA on this visit. The patient was discharged home in stable condition with 500mg of Keppra BID and scheduled to follow up with Dr. Jarrell in 2 weeks. Hospital Course Alvaro Daniels is a 76 year old male admitted for TIA, afib with RVR and seizure activity. For full hospital course see below: TIA, present on admission. Acute. Resolved - Likely TIA as symptoms were resolving in ED prior to admission and MRI unchanged from 01/23/17 - Monitor on telemetry - Echo results EF 60-65% - MRI stroke negative for acute stroke - Continue Atorvastatin, Aspirin, warfarin. Atrial Fibrillation with RVR, present on admission. Acute RVR on chronic Atrial fibrillation. 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 Ongoing. - Patient had seizure in ED, initiated Keppra -As above this was most likely secondary to his previous CVAs and possible TIA Hypertension, present on admission, chronic. Ongoing. - Hold Lisinopril, HCTZ for permissive hypertension for 24h -Restarted home anti HTN meds on DC -Labetalol ordered for out of range blood pressure control Hyperlipidemia - Continued home Atorvastatin Presence of Bovine AV Valve, present on admission. Chronic. Stable. - Stable per Echo on 01/29 - Warfarin dose per pharmacy Tobacco Dependence, present on admission, chronic. Stable. - Patient has long smoking history despite CVA/TIA continues to smoke - Cessation counselled - Nicotine patch as needed Exam Vital Signs (Last) Date Time Temp Pulse Resp B/P Pulse Ox O2 Delivery O2 Flow Rate FiO2 01/30/17 10:19 93 01/30/17 07:59 36.9 16 129/81 93 Room Air 01/28/17 06:44 3.00 Exam Constitutional: Alert and Awake. No acute Distress. Cooperative and Conversive Eyes: pupils equal, round, and reactive. EOMI. Heart: Regular Rate and Rhythm; no murmurs, No edema Lungs: Clear to Auscultation bilaterally, no wheeze, rales, or rhonchi ABD: soft, no rebound guarding or tenderness Skin: Warm, Dry, No rashes noted. Neurological: no focal deficits noted. Equal strength bilaterally in Upper extremities and lower extremities. Psych: appropriate mood and affect. Test 01/27/17 11:10 01/27/17 11:25 01/28/17 02:03 01/30/17 02:55 Hemoglobin A1c 6.2% (4.8-5.6) Magnesium Level 1.9mg/dL (1.6-2.6) Troponin T < 0.010ug/L (0.0-0.011) Triglycerides Level 111mg/dL (0-149) Cholesterol Level 158mg/dL (100-199) LDL Cholesterol, Calculated 87.800mg/dL (0-99) VLDL Cholesterol 22.200mg/dL HDL Cholesterol 48mg/dL (>39) Cholesterol/HDL Ratio 3.29 (0.0-4.4) Urine Color Yellow (YELLOW) Urine Appearance Clear (CLEAR,HAZY) Urine pH 6.5 (5.0-8.0) Urine Specific [place] 1.015 (1.003-1.035) Urine Protein 100mg/dL (NEG,TRACE) Urine Glucose (UA) Negativemg/dL (NEGATIVE) Urine Ketones Negativemg/dL (NEGATIVE) Urine Occult Blood Trace (NEGATIVE) Urine Nitrite Negative (NEGATIVE) Urine Bilirubin Negative (NEGATIVE) Urine Urobilinogen Normalmg/dL (NORMAL) Urine Leukocyte Esterase Negative (NEGATIVE) Urine RBC 0-2/hpf (0-2) Urine WBC 0-5/hpf (0-5) Urine Epithelial Cells None/hpf (NONE-MOD) Urine Crystals None seen (NONE SEEN) Urine Bacteria None/hpf (NONE-FEW) Urine Hyaline Casts None/lpf (NONE) Urine Granular Casts Occasional (NONE SEEN) Urine Waxy Casts None seen (NONE SEEN) Urine Red Blood Cell Casts None seen (NONE SEEN) Urine White Blood Cell Casts None seen (NONE SEEN) Urine Mucus None seen (None Seen) Urine Trichomonas None seen (NONE SEEN) Urine Yeast None (NONE SEEN) Urinalysis Comment None Urine Culture Reflexed Not indicated White Blood Count 13.7th/mm3 (3.8-10.1) Red Blood Count 5.15mil/mm3 (4.40-5.80) Hemoglobin 15.5g/dL (13.8-17.2) Hematocrit 45.2% (41.0-50.0) Mean Corpuscular Volume 87.8fL (81-100) Mean Corpuscular Hemoglobin 30.1pg (27.0-35.0) Mean Corpuscular Hemoglobin Concent 34.3% (32.0-37.0) Red Cell Distribution Width 13.2% (12.3-15.4) Platelet Count 188bil/L (150-400) Neutrophils (%) (Auto) 72.3% (40-74) Lymphocytes (%) (Auto) 16.2% (14-46) Monocytes (%) (Auto) 10.2% (4-12) Eosinophils (%) (Auto) 0.8% (0-5) Basophils (%) (Auto) 0.2% (0-3) Sodium Level 140mEq/L (134-144) Potassium Level 3.8mEq/L (3.5-5.2) Chloride Level 101mEq/L (97-108) Carbon Dioxide Level 24mmol/L (18-29) Blood Urea Nitrogen 24mg/dL (8-27) Creatinine 1.04mg/dL (0.76-1.27) Estimat Glomerular Filtration Rate 74mL/min (>59) Glucose Level 105mg/dL (60-99) Calcium Level 8.8mg/dL (8.5-10.1) Total Bilirubin 0.8mg/dL (0.0-1.2) Aspartate Amino Transf (AST/SGOT) 21U/L (0-50) Alanine Aminotransferase (ALT/SGPT) 22U/L (0-44) Alkaline Phosphatase 72U/L (25-160) Total Protein 6.0g/dL (6.4-8.4) Albumin 3.3g/dL (3.4-5.0) Prothrombin Time 21.2sec (8.1-12.5) Prothromb Time International Ratio 1.95ratio Discharge Medications Discharge Medications Aspirin Chew (Aspirin Chew) 81 Mg Chew 81 MG PO DAILY Prescribed by: ELIJAH JAUREGUI DO Atorvastatin (Lipitor) 40 Mg Tablet 40 MG PO DAILY Prescribed by: ELIJAH JAUREGUI DO Hydrochlorothiazide (Hydrochlorothiazide) 25 Mg Tablet 25 MG PO DAILY (Reported ) Levetiracetam (Keppra) 500 Mg Tablet 500 MG PO BID Prescribed by: Samantha ROACH Lisinopril (Lisinopril) 20 Mg Tablet 20 MG PO BID Prescribed by: ELIJAH JAUREGUI DO Ubiquinol (Ubiquinol) 100 Mg Capsule 300 MG PO DAILY (Reported) Warfarin Sodium (Warfarin Sodium) 6 Mg Tablet 6 MG PO SuMoTuThSa (Reported) Warfarin Sodium (Warfarin Sodium) 4 Mg Tablet 4 MG PO WeFr (Reported) Additional med instructions I will be prescribing you with Warfarin 5mg by mouth daily, we will schedule follow up with warfarin clinic in the next couple of days. I will be prescribing you with Keppra 500mg by mouth twice a day. This is an anti-seizure medication. We will schedule you with a follow up with Dr. Jarrell in the next few weeks. Followup Plan Disposition: Home Follow-up plan Please follow up with Warfarin clinic in the next few days. Please follow up with Dr. Jarrell in Neurology in the next few weeks. Please follow up with your primary care doctor in the next two weeks. Discharge Diet: Heart Healthy Discharge Activity: Limited until seen by PCP (Please do not drive until your are evaluated by Neurology.) Patient Instructions Do not drive until you have been evaluated by Neurology. Follow-up Provider: Arnaud Hampton MD Follow-up with PCP in: 2 weeks Provider: Hugo Jarrell MD Follow-up in: 2 weeks Time spent Time spent planning and coordinating discharge > 35 minutes Attending Statement The patient was seen and examined together with Dr. Berumen on 01/30/17 and I have added additional information to the note above. copies to: Arnaud Hampton MD; Hugo Jarrell MD, David E DO Jan 30, 2017 14:08 Alejandra Terrazas DO Jan 30, 2017 19:43 Narinder Berumen DO Jan 30, 2017 14:08 Alejandra Terrazas DO Jan 30, 2017 19:43
[2017-01-30] MEDS ORDERED: levETIRAcetam 500 mg Tablet PO SCH (14:18)
--- NOTE | 2017-01-30 17:47 | NUR ---
Discharge Note D/c instructions provided to pt and his . Notified of when to f/u with MD and when apts were scheduled for PCP and warfarin clinic. Neurologist will call pt to schedule f/u apt. Medications reviewed with including when to take next doses. Pt removed PIV himself around 1400, tips intact no bleeding. tele d/c prior to d/c. Pt took all belongings home with him. Left with in w/c with [facility].
== END 2017-01-30 17:29 | disposition home or self-care (01) | DRG 69 ==
LOC: EDBD 10:31 → SED 10:31 → PCC 16:07
PROVIDERS: ADMIT Internal Medicine; ATTEND Internal Medicine
DX: G45.9 Transient cerebral ischemic attack, unspecified (principal); G81.91 Hemiplegia, unspecified affecting right dominant side; G40.409 Other generalized epilepsy and epileptic syndromes, not intractable, without status epilepticus; I10 Essential (primary) hypertension; E78.5 Hyperlipidemia, unspecified; F17.210 Nicotine dependence, cigarettes, uncomplicated; I25.10 Atherosclerotic heart disease of native coronary artery without angina pectoris; Z95.1 Presence of aortocoronary bypass graft; Z79.01 Long term (current) use of anticoagulants; I48.2 Chronic atrial fibrillation